=== PATIENT | male | born 1940 | race Caucasian/White ===

== ENCOUNTER 2016-07-23 12:42 | Inpatient (IN) | payer MEDICARE ==
[~2016-07-23] VITALS: Ht 182.9 cm; Wt 95.6 kg
[2016-07-23 14:25] VITALS: BP 175/76
[2016-07-23 14:50] VITALS: BP 152/62
[2016-07-23 15:27] LABS: MEAN CORPUSCULAR HEMOGLOBIN 29.2 pg (27.0-33.0); MEAN CORPUSCULAR HGB CONC 32.3 g/dl (32.0-36.5); MEAN CORPUSCULAR VOLUME 90.4 fl (80.0-96.0); RED CELL DISTRIBUTION WIDTH 13.4 % (11.5-14.5); WHITE BLOOD COUNT 7.5 K/mm3 (4.0-10.0)
[2016-07-23 15:36] LABS: INR 1.49
[2016-07-23 15:51] LABS: ALBUMIN 3.7 GM/DL (3.2-5.2); ALBUMIN/GLOBULIN RATIO 0.95 (1.00-1.93); BILIRUBIN,TOTAL 0.4 MG/DL (0.2-1.0); CALCIUM LEVEL 8.8 MG/DL (8.8-10.2); CREATININE FOR GFR 1.48 MG/DL (0.70-1.30); GLOMERULAR FILTRATION RATE 49.1 (>42); PHOSPHORUS LEVEL 2.3 MG/DL (2.5-4.9); TOTAL PROTEIN 7.6 GM/DL (6.4-8.2)
[2016-07-23 15:55] LABS: POTASSIUM SERUM 5.3 MEQ/L (3.5-5.1)
[2016-07-23 16:00] VITALS: BP 173/77
--- NOTE | 2016-07-23 16:02 | REP ---
Portable chest x-ray: Single view. History: Subdural hematoma. Comparison chest x-ray July 19, 2012. Findings: The patient is status post cardiac valve replacement. There are clips in the right chest and mediastinum. EKG monitoring electrodes are seen. Heart is enlarged as before. There are increased markings in the right upper lobe which may be an infiltrate. There is some old parenchymal scarring on the right as well at midlung field level. Impression: New area of parenchymal consolidation right upper lobe consistent with pneumonia. Old postsurgical changes on the right. Mild cardiomegaly. Signed by Cristian Archibald MD 07/23/2016 07:29 P
[2016-07-23] MEDS ORDERED: WARF-23 PO (16:03)
[2016-07-23] MEDS ORDERED: LOSA50TA20 PO (16:03)
[2016-07-23] MEDS ORDERED: ALBU83IN INH (16:03)
[2016-07-23] MEDS ORDERED: PHEN100C PO (16:03)
[2016-07-23] MEDS ORDERED: CITA20TA4 PO (16:03)
[2016-07-23] MEDS ORDERED: FLOM5CAP PO (16:03)
[2016-07-23] MEDS ORDERED: OMEP20CA3 PO (16:03)
[2016-07-23] MEDS ORDERED: WARF-18 PO (16:03)
[2016-07-23] MEDS ORDERED: PHYTONADIONE 10MG/ML INJECTION (J3430) SC ONE (17:45)
--- NOTE | 2016-07-23 18:38 | ECGEPIP ---
Stationary ECG Study [facility] Test Date: 2016-07-23 Pat Name: VENU CALDERÓN Department: Room: [place] [address] Gender: M Internet Marketing Director: KIRK : 1940 Requested By: ALMA DELIA Alexander Order Number: [id number] Reading MD: Ann Marie Jimenez Measurements Intervals [place] Rate: 61 P: 36 [place]: 211 QRS: -72 QRSD: 169 T: 4 QT: 451 QTc: 456 Interpretive Statements SINUS RHYTHM WITH FIRST DEGREE AV BLOCK RIGHT BUNDLE BRANCH BLOCK LEFT ANTERIOR FASCICULAR BLOCK TRIFASCICULAR BLOCK SINCE 07/19/12 RIGHT BUNDLE BRANCH BLOCK IS NEW Electronically Signed On 07-23-2016 18:38:41 EST by Ann Marie Jimenez
--- NOTE | 2016-07-23 19:28 | REP ---
MRI brain without contrast: History: Subdural hematoma. Injury in a fall. Comparison is made with CT study of the brain from 07/23/[address] [facility] technique: Axial and sagittal imaging planes are utilized. T1 and T2-weighted scans were obtained. Sequences include spin-echo, fast spin echo, FLAIR, and diffusion weighted sequences. MRI findings: No bony calvarial defect is seen. There is a left occipital scalp hematoma with a defect in the overlying skin suggesting a laceration. No skull fracture is evident on MRI scan. There is moderate diffuse cerebral atrophy. No midline shift or mass effect is seen. The dural line is slightly thickened in the left frontal region consistent with a small subdural hematoma seen on CT study here. There is also slight thickening of the falx. This is best appreciated on the 2-D gradient-echo heme study. A 1 cm contusion is seen on the heme study in the peripheral gyrus in the left parietal lobe. No definite right-sided subdural is seen. Small vessel atherosclerotic changes are noted. Impression: Small left frontal subdural hematoma 2-3 mm in thickness. A small collection of subdural blood is seen along the left side of the anterior falx. A 1 cm parenchymal contusion is noted in the left parietal lobe. No midline shift or mass effect seen. Left occipital scalp hematoma. Findings were reviewed with Dr. Early on the evening of the study. Signed by Cristian Archibald MD 07/23/2016 07:31 P
[2016-07-23 19:30] VITALS: BP 153/74
[2016-07-23] MEDS: IPRATROPIUM 0.5MG/ALBUTEROL 2.5MG INH SOL UD 3ML (DUONEB)(J7620) NEB SCH (20:00)
--- NOTE | 2016-07-23 20:50 | CCN ---
DATE: 07/23/2016 PULMONARY CRITICAL CARE NOTE I was called to the intensive care unit to evaluate this 75-year-old male after transfer from [facility]. He fell striking his head. He suffered a laceration in the occipital region. Imaging performed in [place] suggested a subdural hematoma, and he was transferred here for neurosurgical care. He was recently released from the hospital after treatment for pneumonia and continues to experience cough. He is awake and alert at this point. His temperature is 97, pulse rate 65, respirations 18, blood pressure 103/77. HEENT: He has an occipital laceration with ray in place. His pupils respond. Oral mucosa is pink. Neck is supple, no meningismus. Heart sounds are regular without appreciable murmur, quite distant. Breath sounds are coarse, particularly anteriorly on the right with some rhonchi in the right upper lobe. Chest is symmetric, increased in its AP diameter. Abdomen is soft with intact bowel sounds. Extremities show no edema. He does have a left hemiparesis. On review of his past medical history, it is quite extensive. He had a remote deep vein thrombosis (DVT), pulmonary embolism complicated by hydrothorax and pulmonary infarction. He had mitral valvular repair in 2003. He has obstructive sleep apnea syndrome, on pressure therapy. He has remotely diagnosed seizure disorder, benign prostatic hypertrophy and prostate cancer. He has a history of renal disease. Left ventricular hypertrophy on echocardiography studies. He was seen by Dr. Lennon for a solitary pulmonary nodule in the right upper lobe in June of 2015. 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 DIAGNOSTIC STUDIES: Tonight, his white cell count is 7.5, hemoglobin 13.6, hematocrit 42.2, platelet count is 100, chronically low. Sodium is 143, potassium 5.3, chloride 109, CO2 26, BUN 31, creatinine 1.4, glucose 96, phosphorus 2.3, alkaline phosphatase 134, LDH 244. His INR was 1.49. The primary problem requiring critical attention is pneumonia. There is an infiltrate on the x-ray; however, the patient does not have fever or elevated white count and did recently complete a course of antibiotics. Will obtain a sputum study for gram stain and culture. Will also obtain sputum for cytology. Chronic obstructive lung disease. Will be in nebulized bronchodilator therapy to facilitate secretion clearance. Obstructive sleep apnea syndrome. The patient's is on continuous positive airway pressure (CPAP) at 6 cm of water. Will continue with this. Subdural hematoma. Apparently on re-review of the imaging, this is quite minimal. Repeat CT will be arranged for morning. Solitary pulmonary nodule. The patient will require outpatient followup. Mitral valve replacement is remote. We will restart anticoagulation. I have discussed this with neurosurgery, and they agree that despite the a small subdural hematoma, anticoagulation would be prudent given his mitral valvular disease. Systemic arterial hypertension. Will restart his medications, targeting systolic blood pressure 150. Thrombocytopenia is chronic. Hyperkaliemia. We will administer hydration and recheck his electrolytes in the morning. The patient's condition is critical. Intensive care unit (ICU) care is appropriate. 57 minutes was spent in the provision of bedside critical care and coordination
[2016-07-23] MEDS: WARFARIN SOD 5 MG TAB PO SCH (20:52)
[2016-07-23] MEDS: D5W/0.45% SODIUM CHLORIDE 1,000 ML IV SCH (20:52)
[2016-07-23] MEDS ORDERED: TAMSULOSIN 0.4 MG CAP PO SCH (21:00)
[2016-07-23] MEDS ORDERED: PHENYTOIN ER 100 MG CAP PO SCH (21:00)
[2016-07-23 22:21] LABS: COLLAGEN ADP 189 SECONDS (56-103)
[2016-07-23 23:30] VITALS: BP 121/65
[2016-07-24] MEDS: IPRATROPIUM 0.5MG/ALBUTEROL 2.5MG INH SOL UD 3ML (DUONEB)(J7620) NEB SCH ×3 (01:29→14:38)
[2016-07-24 04:00] VITALS: BP 135/61
[2016-07-24 05:13] LABS: INR 1.51
[2016-07-24 05:15] LABS: ALBUMIN 3.2 GM/DL (3.2-5.2); CALCIUM LEVEL 8.1 MG/DL (8.8-10.2); CREATININE FOR GFR 1.44 MG/DL (0.70-1.30); GLOMERULAR FILTRATION RATE 50.6 (>42); PHOSPHORUS LEVEL 2.5 MG/DL (2.5-4.9); POTASSIUM SERUM 4.9 MEQ/L (3.5-5.1)
[2016-07-24] MEDS ORDERED: PROCHLORPERAZINE 5 MG TAB (S0183) PO ONE (05:15)
[2016-07-24] MEDS ORDERED: NORCO, ANEXSIA 5/325MG TABLET (HYDROcodone/ACETAMINOPHEN) PO PRN (05:15)
[2016-07-24 08:00] VITALS: BP 123/60
[2016-07-24] MEDS: D5W/0.45% SODIUM CHLORIDE 1,000 ML IV SCH (08:00)
[2016-07-24] MEDS ORDERED: LOSARTAN 50 MG TAB PO SCH (09:00)
--- NOTE | 2016-07-24 10:16 | REP ---
CT BRAIN WITHOUT CONTRAST: HISTORY: Subdural hematoma. Comparison is made with the [place] CT study from July 23, 2016. FINDINGS: Bone window settings show no evidence of skull fracture or bony destructive lesion. Visualized paranasal sinuses are clear. On soft tissue window settings, there is diffuse moderate cerebral atrophy. The previously noted very thin left frontoparietal subdural hematoma is again seen measuring 3 mm in greatest thickness. It is unchanged in anteroposterior extent. There is no visible mass effect. There is a small quantity of subdural hematoma adjacent to the left side of the anterior falx. This appears smaller than on yesterday's CT. The previously noted hemorrhagic contusion is no longer apparent. Skin ray are seen at the scalp laceration and left parietal scalp hematoma. IMPRESSION: Small left subdural hematoma improved. Diffuse atrophy. No parenchymal hemorrhage seen. Signed by Cristian Archibald MD 07/24/2016 10:55 A
[2016-07-24 11:00] VITALS: BP 134/70
[2016-07-24 11:50] VITALS: BP 117/58
[2016-07-24 12:00] VITALS: BP 117/58
[2016-07-24] MEDS ORDERED: PROCHLORPERAZINE 5 MG TAB (S0183) PO PRN (12:00)
[2016-07-24] MEDS ORDERED: PROC10TA PO (16:55)
[2016-07-24] MEDS: WARFARIN SOD 5 MG TAB PO SCH (17:04)
--- NOTE | 2016-07-25 08:29 | DSES ---
DATE OF ADMISSION: 07/23/2016 DATE OF DISCHARGE: 07/24/2016 FINAL DIAGNOSES: Acute head injury with small contusion and minimal subdural hematoma and diffuse central nervous system dysfunction, vestibular dysfunction. HOSPITAL COURSE: I was called by the hospitalist stating the patient fallen down today, developing loss of consciousness. There has been no history of progressive deterioration in his level or content of consciousness, though the CT scan showed a huge hematoma with more than 5 cm with a shift of midline structures. I requested that the patient be transferred immediately to the [facility]. On arrival, he was neurologically stable. The CT scan was reviewed from outside which showed minimal cortical contusion in the left parietal lobe with miniscule subdural linear density and also showed a few millimeters off inter-falcine net. The patient was observed and the CT scan from today shows still less conspicuous minute cortical contusion and 2.4 mm width subdural hematoma without mass effect. The patient, at the time of discharge is ambulating in his room, though with ataxia and left hemiparesis, worse in the lower extremities, which he drags along and tends to lean on the left. The patient's family advised that he cannot have any unsupervised activity. The patient, however, is adamant to go home. His family stated there is no acute change in his baseline as best as they can see. They are, however, concerned with the progressive worsening of the weakness, instability of the gait. They are advised again, to keep a close followup with his neurologist who has been taking care of him and continue seizure precautions. All discharge instructions were discussed. From a neurosurgical standpoint, he was discharged. He was advised to continue to followup with all his treating physicians, switchboard mechanic for COPD, sleep apnea, pulmonary nodule and pick up for his mitral valve replacement or repair, hypertension, thrombocytopenia and hyperkalemia. He is waiting for clearance to go home by the hospitalist. Once again, the patient and family have followup instructions.
== END 2016-07-24 17:15 | disposition home or self-care (01) | DRG 83 ==
LOC: M ICU 14:32
PROVIDERS: ADMIT Neurological Surgery; ATTEND Neurological Surgery
DX: S06.5X9A Traumatic subdural hemorrhage with loss of consciousness of unspecified duration, initial encounter (principal); I69.954 Hemiplegia and hemiparesis following unspecified cerebrovascular disease affecting left non-dominant side; W18.30XA Fall on same level, unspecified, initial encounter; Y92.009 Unspecified place in unspecified non-institutional (private) residence as the place of occurrence of the external cause; J44.9 Chronic obstructive pulmonary disease, unspecified; G47.33 Obstructive sleep apnea (adult) (pediatric); R91.8 Other nonspecific abnormal finding of lung field; I10 Essential (primary) hypertension; D69.6 Thrombocytopenia, unspecified; E87.5 Hyperkalemia; R27.0 Ataxia, unspecified; N40.0 Benign prostatic hyperplasia without lower urinary tract symptoms; Z86.718 Personal history of other venous thrombosis and embolism; Z86.711 Personal history of pulmonary embolism

== ENCOUNTER 2017-03-23 09:30 | Day surgery (SDC) | payer MEDICARE ==
[~2017-03-23] VITALS: Ht 182.9 cm; Wt 93.4 kg
[~2017-03-23 09:30] MED LIST: ACETAMINOPHEN 325 MG TAB PO PRN; ACETYLCHOLINE OPHTH SOLN 1% 2ML (MIOCHOL-E) As Ordered ONE; ALBU83IN INH; BALANCED SALT IRRIGATION SOLUTION 500ML BAG (FOR OR EYE MACHINE) As Ordered ONE; CEFUROXIME 1MG/0.1ML INTRACAMERAL INJ As Ordered ONE; CITA20TA4 PO; CYCLOPENTOLATE 2% OPHTH SOLN 2ML BTL OS ONE; DILA100C PO; FLOM5CAP PO; HEALON DUET (HEALON 10MG/ML 0.55ML & HEALON ENDOCOAT 30MG/ML 0.85ML) As Ordered ONE; LIDOCAINE 1% SDV 5 ML VIAL As Ordered ONE; LIDOCAINE 3.5 % 1ML OPHTH TOPICAL GEL OU ONE; LOSA50TA20 PO; OFLOXACIN 0.3 % (OCUFLOX) OPTH SOL 5ML OS ONE; OMEP20CA3 PO; PHEN100C PO; PHENYLEPHRINE 2.5% OPHTH SOL 2ML OS ONE; POVIDONE-IODINE 5% OPHTH PREP SOL 30ML As Ordered ONE; PROC10TA PO; PROPARACAINE 0.5% OPHTH SOL 15ML OS PRN; TROPICAMIDE 1% OPHTH SOLN 2ML OS ONE; WARF-18 PO; WARF-23 PO
[2017-03-23] MEDS ORDERED: LR 1,000 ML IV SCH ×2 (09:45→11:45)
[2017-03-23] MEDS ORDERED: fentaNYL 100 MCG/2 ML INJECTION (J3010) As Ordered ONE (10:34)
[2017-03-23] MEDS ORDERED: MIDAZOLAM INJ 2 MG/2 ML VIAL (J2250) As Ordered ONE (10:34)
[2017-03-23] MEDS ORDERED: CEFUROXIME 1MG/0.1ML INTRACAMERAL INJ As Ordered ONE (10:41)
[2017-03-23] MEDS ORDERED: ACETYLCHOLINE OPHTH SOLN 1% 2ML (MIOCHOL-E) As Ordered ONE (10:41)
[2017-03-23] MEDS ORDERED: HEALON DUET (HEALON 10MG/ML 0.55ML & HEALON ENDOCOAT 30MG/ML 0.85ML) As Ordered ONE (10:41)
[2017-03-23] MEDS ORDERED: LIDOCAINE 1% SDV 5 ML VIAL As Ordered ONE (10:41)
[2017-03-23] MEDS ORDERED: KETOROLAC 0.5% OPHTH SOLN OS ONE (11:45)
[2017-03-23] MEDS ORDERED: TRIMETHOBENZAMIDE 300 MG CAP PO PRN (11:45)
[2017-03-23] MEDS ORDERED: AcetaZOLAMIDE 500 MG ER CAP PO ONE (11:45)
[2017-03-23 12:10] VITALS: BP 189/84
--- NOTE | 2017-03-23 14:14 | RO ---
DATE OF PROCEDURE: 03/23/2017 PREPROCEDURE DIAGNOSIS: Age related nuclear cataract and astigmatism. POSTPROCEDURE DIAGNOSIS: Age related nuclear cataract and astigmatism. PROCEDURE: Femtosecond cataract extraction with posterior chamber intraocular lens implantation. The lens used was AU00T0, 19.0 diopter. SURGEON: Tabby Alexandre MD TYPING SECTION CHIEF: ANESTHESIA: Topical sedation. DESCRIPTION OF PROCEDURE: The patient was brought to the operating room and put under the femtosecond laser. A lid speculum was placed between the lids, and the laser was lowered on. Docking was achieved with good suction. The laser procedure was performed with no difficulty. The laser was then removed from the eye, and the lid speculum was removed. The laser was moved over to the operating microscope and prepped and draped in the usual fashion. A lid speculum was placed between the lids. The eye was fixated. The side port incision was opened up with a spatula. 1% non-preservative lidocaine was instilled; then, viscoelastic was instilled. The main incision was then opened with the spatula. The capsulorrhexis was removed from the eye with the Utrata forceps. The lens was then hydrodissected, and a phacoemulsification unit was used to make a groove in the nucleus and one meridian. The nucleus was cracked into four quadrants, and then each quadrant was removed with the phacoemulsification unit. Any remaining cortex was removed with the irrigation and aspiration (I and A) unit. The capsular bag was refilled with viscoelastic. A posterior chamber intraocular lens was placed in the capsular bag. The remaining viscoelastic was removed. The wound was hydrated. Miochol and cefuroxime were instilled. The wound was watertight. The patient tolerated the procedure well and went to the recovery room in stable condition.
[2017-04-18] MEDS ORDERED: DILA100C PO (07:58)
[2017-04-18] MEDS ORDERED: FINA5TAB2 PO (07:58)
== END 2017-03-23 12:20 | disposition home or self-care (01) ==
LOC: M SDC 09:30
PROVIDERS: ATTEND Ophthalmology
DX: H25.12 Age-related nuclear cataract, left eye (principal); H52.202 Unspecified astigmatism, left eye; I10 Essential (primary) hypertension; K21.9 Gastro-esophageal reflux disease without esophagitis; D64.9 Anemia, unspecified; F41.9 Anxiety disorder, unspecified; J44.9 Chronic obstructive pulmonary disease, unspecified; Z86.73 Personal history of transient ischemic attack (TIA), and cerebral infarction without residual deficits; G47.30 Sleep apnea, unspecified; Z79.899 Other long term (current) drug therapy; Z87.891 Personal history of nicotine dependence; N40.0 Benign prostatic hyperplasia without lower urinary tract symptoms
CPT/HCPCS: 66984; J2250; J3010; V2632

== ENCOUNTER → 2017-06-20 | Outpatient (REF) | payer MEDICARE ==
[2017-06-20 08:18] LABS: PHENYTOIN (DILANTIN) 21.9 UG/ML (10.0-20.0)
== END ==
LOC: SKLAB8 08:00
DX: Z51.81 Encounter for therapeutic drug level monitoring (principal); Z79.899 Other long term (current) drug therapy
CPT/HCPCS: 80185

== ENCOUNTER → 2017-06-22 | Outpatient (REF) | payer MEDICARE ==
[2017-06-22 14:52] LABS: HEMATOCRIT 38.3 % (42.0-52.0); HEMOGLOBIN 12.6 g/dl (14.0-18.0); MEAN CORPUSCULAR HEMOGLOBIN 29.9 pg (27.0-33.0); MEAN CORPUSCULAR HGB CONC 32.9 g/dl (32.0-36.5); MEAN CORPUSCULAR VOLUME 90.8 fl (80.0-96.0); PLATELET COUNT, AUTOMATED 127 10^3/uL (150-450); RED BLOOD COUNT 4.22 10^6/uL (4.30-6.10); RED CELL DISTRIBUTION WIDTH 13.2 % (11.5-14.5); WHITE BLOOD COUNT 9.1 10^3/uL (4.0-10.0)
[2017-06-22 15:11] LABS: ANION GAP 5 MEQ/L (8-16); BLOOD UREA NITROGEN 38 MG/DL (7-18); CARBON DIOXIDE LEVEL 28 MEQ/L (21-32); CHLORIDE LEVEL 107 MEQ/L (98-107); CREATININE FOR GFR 1.49 MG/DL (0.70-1.30); GLOMERULAR FILTRATION RATE 48.6 (>42); GLUCOSE, FASTING 111 MG/DL (83-110); POTASSIUM SERUM 4.4 MEQ/L (3.5-5.1); SODIUM LEVEL 140 MEQ/L (136-145)
== END ==
LOC: SKLAB8 13:00
DX: Z00.00 Encounter for general adult medical examination without abnormal findings (principal)
CPT/HCPCS: 80048

== ENCOUNTER → 2017-06-25 | Outpatient (REF) | payer MEDICARE, MEDICAID ==
[2017-06-25 12:52] LABS: BASO % 0.5 % (0.0-1.0); EOS # 0.3 10^3/uL (0.0-0.50); EOS % 3.4 % (0.0-3.0); HEMATOCRIT 37.4 % (42.0-52.0); HEMOGLOBIN 12.3 g/dl (14.0-18.0); IMMATURE GRANULOCYTE % 0.2 % (0-0); LYMPH # 2.8 10^3/uL (1.5-4.5); LYMPH % 34.5 % (24.0-44.0); MEAN CORPUSCULAR HEMOGLOBIN 29.7 pg (27.0-33.0); MEAN CORPUSCULAR HGB CONC 32.9 g/dl (32.0-36.5); MEAN CORPUSCULAR VOLUME 90.3 fl (80.0-96.0); MONO # 0.8 10^3/uL (0.0-0.8); MONO % 10.2 % (0.0-5.0); NEUTROPHILS # 4.1 10^3/uL (1.8-7.7); NEUTROPHILS % 51.2 % (36.0-66.0); PLATELET COUNT, AUTOMATED 147 10^3/uL (150-450); RED BLOOD COUNT 4.14 10^6/uL (4.30-6.10); RED CELL DISTRIBUTION WIDTH 13.2 % (11.5-14.5)
[2017-06-25 13:08] LABS: ANION GAP 5 MEQ/L (8-16); BLOOD UREA NITROGEN 34 MG/DL (7-18); CALCIUM LEVEL 7.8 MG/DL (8.8-10.2); CARBON DIOXIDE LEVEL 27 MEQ/L (21-32); CHLORIDE LEVEL 109 MEQ/L (98-107); CREATININE FOR GFR 1.43 MG/DL (0.70-1.30); GLOMERULAR FILTRATION RATE 50.9 (>42); GLUCOSE, FASTING 109 MG/DL (83-110); POTASSIUM SERUM 4.4 MEQ/L (3.5-5.1); SODIUM LEVEL 141 MEQ/L (136-145)
== END ==
LOC: SKLAB8 12:32
DX: R31.9 Hematuria, unspecified (principal)
CPT/HCPCS: 80048

== ENCOUNTER 2017-07-04 18:18 | Inpatient (IN) | payer MEDICARE, MEDICAID ==
[2017-07-04] MEDS: ASPIRIN 81 MG CHEW TABLET PO (19:39)
[2017-07-04 19:49] LABS: BASO % 0.2 % (0.0-1.0); EOS # 0.2 10^3/uL (0.0-0.50); EOS % 1.7 % (0.0-3.0); HEMATOCRIT 36.5 % (42.0-52.0); IMMATURE GRANULOCYTE % 0.3 % (0-0); LYMPH # 2.6 10^3/uL (1.5-4.5); LYMPH % 21.2 % (24.0-44.0); MEAN CORPUSCULAR HEMOGLOBIN 29.7 pg (27.0-33.0); MEAN CORPUSCULAR HGB CONC 32.9 g/dl (32.0-36.5); MEAN CORPUSCULAR VOLUME 90.3 fl (80.0-96.0); MONO # 1.2 10^3/uL (0.0-0.8); MONO % 9.9 % (0.0-5.0); NEUTROPHILS # 8.2 10^3/uL (1.8-7.7); NEUTROPHILS % 66.7 % (36.0-66.0); PLATELET COUNT, AUTOMATED 152 10^3/uL (150-450); RED BLOOD COUNT 4.04 10^6/uL (4.30-6.10); RED CELL DISTRIBUTION WIDTH 12.9 % (11.5-14.5); WHITE BLOOD COUNT 12.4 10^3/uL (4.0-10.0)
[2017-07-04 20:08] LABS: PARTIAL THROMBOPLASTIN TIME 40.4 SECONDS (26.8-37.9)
[2017-07-04 20:11] LABS: ALBUMIN 3.4 GM/DL (3.2-5.2); ALBUMIN/GLOBULIN RATIO 0.87 (1.00-1.93); ALKALINE PHOSPHATASE 113 U/L (45-117); ALT/SGPT 23 U/L (12-78); ANION GAP 7 MEQ/L (8-16); AST/SGOT 24 U/L (7-37); BILIRUBIN,DIRECT < 0.1 MG/DL (0.0-0.2); BILIRUBIN,TOTAL 0.3 MG/DL (0.2-1.0); BLOOD UREA NITROGEN 37 MG/DL (7-18); CALCIUM LEVEL 8.3 MG/DL (8.8-10.2); CARBON DIOXIDE LEVEL 26 MEQ/L (21-32); CHLORIDE LEVEL 109 MEQ/L (98-107); CPK CREATINE PHOSPHOKINASE 52 U/L (39-308); GLOMERULAR FILTRATION RATE 41.7 (>42); GLUCOSE, FASTING 97 MG/DL (83-110); LIPASE 117 U/L (73-393); MB/CK RELATIVE INDEX 1.92 (< OR =4); NT-PRO BNP 678 PG/ML (<450); PHENYTOIN (DILANTIN) 19.3 UG/ML (10.0-20.0); POTASSIUM SERUM 4.8 MEQ/L (3.5-5.1); SODIUM LEVEL 142 MEQ/L (136-145); TOTAL PROTEIN 7.3 GM/DL (6.4-8.2); TROPONIN I < 0.02 NG/ML (< 0.10)
[2017-07-04 20:16] LABS: PROTHROMBIN TIME 14.4 SECONDS (12.4-14.5)
[2017-07-04] MEDS: MORPHINE 4 MG/ML 1ML VIAL (J2270) IV (21:34)
[2017-07-04] MEDS: PHENYTOIN ER 100 MG CAP PO (23:33)
[2017-07-04] MEDS: levETIRAcetam 250MG TABLET (KEPPRA) PO (23:33)
[2017-07-04] MEDS: PIPERACILLIN/TAZOBACTAM SOD 3.375 GM in APPROPRIATE DILUENT 1 EA IV (23:43)
[2017-07-05] MEDS: VANCOMYCIN HCL 1,000 MG, VIAL MATE ADAPTER 1 EACH in D5W 250 ML IV (00:49)
[2017-07-05] MEDS ORDERED: ACETAMINOPHEN 325 MG TAB PO (01:00)
[2017-07-05] MEDS ORDERED: BISACODYL 10 MG SUPP PR (01:00)
[2017-07-05] MEDS ORDERED: ACETAMINOPHEN TAB 650MG DOSE (2X325MG) PO (01:00)
[2017-07-05] MEDS: traZODone 50 MG TAB PO (02:02)
[2017-07-05] MEDS: QUEtiapine FUMARATE 25 MG TAB PO (02:03)
[2017-07-05] MEDS: IPRATROPIUM 0.5MG/ALBUTEROL 2.5MG INH SOL UD 3ML (DUONEB)(J7620) INH (08:13)
[2017-07-05] MEDS: MOM 30ML SUSPENSION UDC PO (08:23)
[2017-07-05] MEDS: TAMSULOSIN 0.4 MG CAP PO (08:23)
[2017-07-05] MEDS: FINASTERIDE 5 MG TAB PO (08:23)
[2017-07-05] MEDS: ASPIRIN 81 MG ENTERIC TAB PO (08:23)
[2017-07-05] MEDS: DOCUSATE SODIUM 100 MG CAP PO (08:23)
[2017-07-05] MEDS: CitaloPRAM (CeleXA) 20 MG TAB PO (08:23)
[2017-07-05] MEDS: levETIRAcetam 250MG TABLET (KEPPRA) PO (08:23)
[2017-07-05] MEDS: MULTIVITAMINS/MINERALS THERAP 1 TAB PO (08:23)
[2017-07-05 08:24] LABS: BASO # 0.1 10^3/uL (0.0-0.2); BASO % 0.4 % (0.0-1.0); EOS # 0.4 10^3/uL (0.0-0.50); EOS % 2.9 % (0.0-3.0); HEMATOCRIT 35.8 % (42.0-52.0); HEMOGLOBIN 11.8 g/dl (14.0-18.0); IMMATURE GRANULOCYTE % 0.2 % (0-0); MEAN CORPUSCULAR HEMOGLOBIN 29.6 pg (27.0-33.0); MEAN CORPUSCULAR VOLUME 89.7 fl (80.0-96.0); MONO # 1.3 10^3/uL (0.0-0.8); MONO % 10.2 % (0.0-5.0); NEUTROPHILS # 7.8 10^3/uL (1.8-7.7); NEUTROPHILS % 62.3 % (36.0-66.0); PLATELET COUNT, AUTOMATED 150 10^3/uL (150-450); RED BLOOD COUNT 3.99 10^6/uL (4.30-6.10); RED CELL DISTRIBUTION WIDTH 12.8 % (11.5-14.5); WHITE BLOOD COUNT 12.5 10^3/uL (4.0-10.0)
[2017-07-05 08:45] LABS: ANION GAP 7 MEQ/L (8-16); BLOOD UREA NITROGEN 36 MG/DL (7-18); CALCIUM LEVEL 8.3 MG/DL (8.8-10.2); CARBON DIOXIDE LEVEL 21 MEQ/L (21-32); CHLORIDE LEVEL 112 MEQ/L (98-107); CREATININE FOR GFR 1.67 MG/DL (0.70-1.30); GLOMERULAR FILTRATION RATE 42.6 (>42); GLUCOSE, FASTING 89 MG/DL (83-110); MAGNESIUM LEVEL 2.3 MG/DL (1.8-2.4); POTASSIUM SERUM 4.3 MEQ/L (3.5-5.1); SODIUM LEVEL 140 MEQ/L (136-145)
[2017-07-05] MEDS ORDERED: PANTOPRAZOLE 40MG TAB (PROTONIX) PO (09:00)
[2017-07-05] MEDS: ENOXAPARIN 40 MG/0.4 ML SYRINGE (J1650) SC (09:00)
[2017-07-05] MEDS ORDERED: VANCOMYCIN HCL 1,000 MG, VIAL MATE ADAPTER 1 EACH in D5W 250 ML IV (10:45)
[2017-07-05] MEDS: PIPERACILLIN/TAZOBACTAM SOD 3.375 GM in APPROPRIATE DILUENT 1 EA IV (13:26)
[2017-07-05] MEDS ORDERED: OMEPRAZOLE 20 MG CAP PO (18:00)
[2017-07-05] MEDS ORDERED: PHENYTOIN ER 100 MG CAP PO (21:00)
== END 2017-07-05 15:15 | DRG 194 ==
LOC: M ED INP 07-05 00:57 → M ED 18:18
DX: J18.9 Pneumonia, unspecified organism (principal); N17.9 Acute kidney failure, unspecified; Z88.5 Allergy status to narcotic agent; Z79.899 Other long term (current) drug therapy; Z87.891 Personal history of nicotine dependence; F03.90 Unspecified dementia, unspecified severity, without behavioral disturbance, psychotic disturbance, mood disturbance, and anxiety; Z86.73 Personal history of transient ischemic attack (TIA), and cerebral infarction without residual deficits; N40.0 Benign prostatic hyperplasia without lower urinary tract symptoms; F32.9 Major depressive disorder, single episode, unspecified; Z79.82 Long term (current) use of aspirin

== ENCOUNTER → 2017-07-06 | Outpatient (REF) | payer MEDICARE, MEDICAID ==
[2017-07-06 08:10] LABS: HEMATOCRIT 35.9 % (42.0-52.0); HEMOGLOBIN 11.8 g/dl (14.0-18.0); MEAN CORPUSCULAR HEMOGLOBIN 29.6 pg (27.0-33.0); MEAN CORPUSCULAR HGB CONC 32.9 g/dl (32.0-36.5); PLATELET COUNT, AUTOMATED 176 10^3/uL (150-450); RED BLOOD COUNT 3.99 10^6/uL (4.30-6.10); WHITE BLOOD COUNT 10.5 10^3/uL (4.0-10.0)
[2017-07-06 08:36] LABS: ANION GAP 4 MEQ/L (8-16); BLOOD UREA NITROGEN 38 MG/DL (7-18); CALCIUM LEVEL 8.3 MG/DL (8.8-10.2); CARBON DIOXIDE LEVEL 27 MEQ/L (21-32); CHLORIDE LEVEL 110 MEQ/L (98-107); CREATININE FOR GFR 1.89 MG/DL (0.70-1.30); GLOMERULAR FILTRATION RATE 36.9 (>42); GLUCOSE, FASTING 108 MG/DL (83-110); POTASSIUM SERUM 4.4 MEQ/L (3.5-5.1); SODIUM LEVEL 141 MEQ/L (136-145)
== END ==
LOC: SKLAB8 07:00
DX: E03.9 Hypothyroidism, unspecified (principal)
CPT/HCPCS: 36415

== ENCOUNTER → 2017-07-07 | Outpatient (REF) | payer MEDICARE, MEDICAID ==
[2017-07-07 09:59] LABS: HEMATOCRIT 35.5 % (42.0-52.0); HEMOGLOBIN 11.6 g/dl (14.0-18.0); MEAN CORPUSCULAR HEMOGLOBIN 29.4 pg (27.0-33.0); MEAN CORPUSCULAR HGB CONC 32.7 g/dl (32.0-36.5); MEAN CORPUSCULAR VOLUME 89.9 fl (80.0-96.0); PLATELET COUNT, AUTOMATED 190 10^3/uL (150-450); RED BLOOD COUNT 3.95 10^6/uL (4.30-6.10); RED CELL DISTRIBUTION WIDTH 12.8 % (11.5-14.5); WHITE BLOOD COUNT 8.5 10^3/uL (4.0-10.0)
[2017-07-07 10:25] LABS: ALBUMIN 3.1 GM/DL (3.2-5.2); ALBUMIN/GLOBULIN RATIO 0.86 (1.00-1.93); ALKALINE PHOSPHATASE 95 U/L (45-117); ALT/SGPT 28 U/L (12-78); ANION GAP 9 MEQ/L (8-16); AST/SGOT 22 U/L (7-37); BILIRUBIN,TOTAL 0.2 MG/DL (0.2-1.0); BLOOD UREA NITROGEN 39 MG/DL (7-18); CALCIUM LEVEL 8.1 MG/DL (8.8-10.2); CARBON DIOXIDE LEVEL 23 MEQ/L (21-32); CHLORIDE LEVEL 110 MEQ/L (98-107); CREATININE FOR GFR 1.78 MG/DL (0.70-1.30); GLOMERULAR FILTRATION RATE 39.5 (>42); GLUCOSE, FASTING 155 MG/DL (83-110); PHENYTOIN (DILANTIN) 13.4 UG/ML (10.0-20.0); PSA SCREENING 1.48 NG/ML (< 4.0); SODIUM LEVEL 142 MEQ/L (136-145); TOTAL PROTEIN 6.7 GM/DL (6.4-8.2)
== END ==
LOC: SKLAB8 07:00
DX: I10 Essential (primary) hypertension (principal); Z79.899 Other long term (current) drug therapy
CPT/HCPCS: 80185

== ENCOUNTER → 2017-09-08 | Outpatient (REF) | payer MEDICARE, MEDICAID ==
[2017-09-11 00:06] LABS: LEVETIRACETAM (KEPPRA) 12.5 ug/mL (10.0-40.0)
== END ==
LOC: SKLAB5 07:27
DX: G40.909 Epilepsy, unspecified, not intractable, without status epilepticus (principal)
CPT/HCPCS: 36415

== ENCOUNTER 2017-09-20 15:09 | Inpatient (IN) | payer MEDICARE, MEDICAID ==
[2017-09-20 16:32] LABS: BASO % 0.2 % (0.0-1.0); EOS % 0.2 % (0.0-3.0); HEMATOCRIT 41.2 % (42.0-52.0); HEMOGLOBIN 13.7 g/dl (13.5-17.5); IMMATURE GRANULOCYTE % 0.2 % (0-3.0); LYMPH # 1.5 10^3/uL (1.5-4.5); LYMPH % 11.5 % (24.0-44.0); MEAN CORPUSCULAR HGB CONC 33.3 g/dl (32.0-36.5); MEAN CORPUSCULAR VOLUME 87.1 fl (80.0-96.0); MONO # 0.9 10^3/uL (0.0-0.8); MONO % 6.7 % (0.0-5.0); NEUTROPHILS # 10.3 10^3/uL (1.8-7.7); NEUTROPHILS % 81.2 % (36.0-66.0); PLATELET COUNT, AUTOMATED 106 10^3/uL (150-450); RED BLOOD COUNT 4.73 10^6/uL (4.30-6.10); RED CELL DISTRIBUTION WIDTH 13.5 % (11.5-14.5); WHITE BLOOD COUNT 12.7 10^3/uL (4.0-10.0)
[2017-09-20 16:40] LABS: ANION GAP 7 MEQ/L (8-16); BLOOD UREA NITROGEN 45 MG/DL (7-18); CALCIUM LEVEL 8.3 MG/DL (8.8-10.2); CARBON DIOXIDE LEVEL 25 MEQ/L (21-32); CHLORIDE LEVEL 108 MEQ/L (98-107); CREATININE FOR GFR 2.12 MG/DL (0.70-1.30); GLOMERULAR FILTRATION RATE 32.2 (>42); GLUCOSE, FASTING 118 MG/DL (70-100); PHENYTOIN (DILANTIN) 0.4 UG/ML (10.0-20.0); POTASSIUM SERUM 4.5 MEQ/L (3.5-5.1); SODIUM LEVEL 140 MEQ/L (136-145)
[2017-09-20 16:44] LABS: ABG O2 SATURATION 95.5 % (95.0-99.0); ABG PARTIAL PRESSURE CO2 30.2 mmHg (35.0-45.0); ABG PARTIAL PRESSURE O2 76.1 mmHg (75.0-100.0); ABG TOTAL CO2 20.9 MEQ/L (23.0-31.0); ABG pH (ARTERIAL) 7.439 UNITS (7.350-7.450)
[2017-09-20] MEDS: IPRATROPIUM 0.5MG/ALBUTEROL 2.5MG INH SOL UD 3ML (DUONEB)(J7620) NEB ×3 (16:46→17:08)
[2017-09-20] MEDS: ACETAMINOPHEN TAB 650MG DOSE (2X325MG) PO (17:04)
[2017-09-20 17:11] LABS: LACTIC ACID SEPSIS PROTOCOL 2.2 MMOL/L (0.4-2.0)
[2017-09-20] MEDS: cefTRIAXone SOD 2 GM in D5W MINI-BAG PLUS 50 ML IV (17:30)
[2017-09-20] MEDS: AZITHROMYCIN INJ 500 MG, VIAL MATE ADAPTER 1 EACH in D5W 250 ML IV (17:43)
[2017-09-20 18:02] LABS: INFLUENZA A AMPLIFICATION NEGATIVE (NEGATIVE); INFLUENZA B AMPLIFICATION NEGATIVE (NEGATIVE)
[2017-09-20] MEDS: NS 1,000 ML IV (20:18)
[2017-09-20] MEDS ORDERED: BISACODYL 10 MG SUPP PR (20:30)
[2017-09-20] MEDS ORDERED: ONDANSETRON 4 MG TAB (S0181) PO (20:30)
[2017-09-20] MEDS ORDERED: IPRATROPIUM 0.5MG/ALBUTEROL 2.5MG INH SOL UD 3ML (DUONEB)(J7620) NEB (20:30)
[2017-09-20] MEDS ORDERED: MOM 30ML SUSPENSION UDC PO (20:30)
[2017-09-20] MEDS ORDERED: FLEET ENEMA PR (20:30)
[2017-09-20] MEDS ORDERED: NITROGLYCERIN 0.4 MG SUBL TABLET SL (20:30)
[2017-09-20] MEDS ORDERED: VANCOMYCIN HCL 1,000 MG, VIAL MATE ADAPTER 1 EACH in D5W 250 ML IV (20:30)
[2017-09-20] MEDS: guaiFENesin ER 600 MG TAB PO (22:56)
[2017-09-20] MEDS: HEPARIN SOD (PORCINE) 5000 UNITS/ML VIAL SC (22:56)
[2017-09-20] MEDS: levETIRAcetam 250MG TABLET (KEPPRA) PO (22:57)
[2017-09-20] MEDS: TAMSULOSIN 0.4 MG CAP PO (22:57)
[2017-09-20] MEDS: traZODone 50 MG TAB PO (22:57)
[2017-09-20] MEDS: OMEPRAZOLE 20 MG CAP PO (22:57)
[2017-09-20] MEDS: DOCUSATE SODIUM 100 MG CAP PO (22:57)
[2017-09-20] MEDS: PIPERACILLIN/TAZOBACTAM SOD 2.25 GM in APPROPRIATE DILUENT 1 EA IV (23:37)
[2017-09-21] MEDS: IPRATROPIUM 0.5MG/ALBUTEROL 2.5MG INH SOL UD 3ML (DUONEB)(J7620) NEB ×4 (00:49→20:00)
[2017-09-21] MEDS: VANCOMYCIN HCL 1,000 MG, VIAL MATE ADAPTER 1 EACH in D5W 250 ML IV ×2 (01:04→09:02)
[2017-09-21 01:16] LABS: LACTIC ACID SEPSIS PROTOCOL 1.7 MMOL/L (0.4-2.0)
[2017-09-21] MEDS: HEPARIN SOD (PORCINE) 5000 UNITS/ML VIAL SC ×3 (05:38→21:32)
[2017-09-21] MEDS: PIPERACILLIN/TAZOBACTAM SOD 2.25 GM in APPROPRIATE DILUENT 1 EA IV ×4 (05:39→23:58)
[2017-09-21 06:58] LABS: BASO % 0.2 % (0.0-1.0); EOS # 0.1 10^3/uL (0.0-0.50); EOS % 0.6 % (0.0-3.0); HEMATOCRIT 38.2 % (42.0-52.0); HEMOGLOBIN 12.8 g/dl (13.5-17.5); IMMATURE GRANULOCYTE % 0.4 % (0-3.0); LYMPH # 2.8 10^3/uL (1.5-4.5); LYMPH % 20.9 % (24.0-44.0); MEAN CORPUSCULAR HEMOGLOBIN 29.1 pg (27.0-33.0); MEAN CORPUSCULAR HGB CONC 33.5 g/dl (32.0-36.5); MEAN CORPUSCULAR VOLUME 86.8 fl (80.0-96.0); MONO % 7.2 % (0.0-5.0); NEUTROPHILS # 9.4 10^3/uL (1.8-7.7); NEUTROPHILS % 70.7 % (36.0-66.0); RED CELL DISTRIBUTION WIDTH 13.7 % (11.5-14.5); WHITE BLOOD COUNT 13.4 10^3/uL (4.0-10.0)
[2017-09-21 07:13] LABS: ANION GAP 5 MEQ/L (8-16); BLOOD UREA NITROGEN 41 MG/DL (7-18); CALCIUM LEVEL 7.9 MG/DL (8.8-10.2); CARBON DIOXIDE LEVEL 24 MEQ/L (21-32); CHLORIDE LEVEL 111 MEQ/L (98-107); CREATININE FOR GFR 1.91 MG/DL (0.70-1.30); GLOMERULAR FILTRATION RATE 36.4 (>42); GLUCOSE, FASTING 99 MG/DL (70-100); POTASSIUM SERUM 4.4 MEQ/L (3.5-5.1); SODIUM LEVEL 140 MEQ/L (136-145)
[2017-09-21 07:34] LABS: ERYTHROCYTE SEDIMENTATION RATE 24 mm/hr (0-20)
[2017-09-21 07:45] LABS: PLATELET COUNT, AUTOMATED 87 10^3/uL (150-450)
[2017-09-21 07:47] LABS: IMMATURE PLATELET FRACTION % 4.6 % (0.0-10.9)
[2017-09-21] MEDS: FINASTERIDE 5 MG TAB PO (09:02)
[2017-09-21] MEDS: MULTIVITAMINS/MINERALS THERAP 1 TAB PO (09:02)
[2017-09-21] MEDS: CitaloPRAM (CeleXA) 20 MG TAB PO (09:02)
[2017-09-21] MEDS: DOCUSATE SODIUM 100 MG CAP PO ×2 (09:02→21:32)
[2017-09-21] MEDS: guaiFENesin ER 600 MG TAB PO ×2 (09:02→21:32)
[2017-09-21] MEDS: ASPIRIN 81 MG ENTERIC TAB PO (09:02)
[2017-09-21] MEDS: TAMSULOSIN 0.4 MG CAP PO ×2 (09:02→21:32)
[2017-09-21] MEDS: levETIRAcetam 250MG TABLET (KEPPRA) PO ×2 (09:02→21:32)
[2017-09-21 09:15] LABS: PROLACTIN 8.6 NG/ML (2.1-17.7)
[2017-09-21] MEDS: DIVALPROEX 500MG *ER* TAB PO (11:12)
[2017-09-21] MEDS: NS 1,000 ML IV ×3 (11:32→21:33)
[2017-09-21] MEDS: MECLIZINE 25 MG TABLET PO (17:45)
[2017-09-21] MEDS: NS 500 ML IV (17:45)
[2017-09-21] MEDS: OMEPRAZOLE 20 MG CAP PO (21:32)
[2017-09-21] MEDS: traZODone 50 MG TAB PO (21:32)
[2017-09-22] MEDS: IPRATROPIUM 0.5MG/ALBUTEROL 2.5MG INH SOL UD 3ML (DUONEB)(J7620) NEB ×4 (02:00→21:03)
[2017-09-22] MEDS: VANCOMYCIN HCL 1,000 MG, VIAL MATE ADAPTER 1 EACH in D5W 250 ML IV ×2 (03:09→19:58)
[2017-09-22] MEDS: PIPERACILLIN/TAZOBACTAM SOD 2.25 GM in APPROPRIATE DILUENT 1 EA IV ×4 (05:41→23:31)
[2017-09-22] MEDS: HEPARIN SOD (PORCINE) 5000 UNITS/ML VIAL SC ×3 (05:42→21:54)
[2017-09-22] MEDS: FINASTERIDE 5 MG TAB PO (07:47)
[2017-09-22] MEDS: guaiFENesin ER 600 MG TAB PO ×2 (07:47→19:59)
[2017-09-22] MEDS: DOCUSATE SODIUM 100 MG CAP PO ×2 (07:47→19:59)
[2017-09-22] MEDS: MULTIVITAMINS/MINERALS THERAP 1 TAB PO (07:47)
[2017-09-22] MEDS: ASPIRIN 81 MG ENTERIC TAB PO (07:47)
[2017-09-22] MEDS: TAMSULOSIN 0.4 MG CAP PO ×2 (07:47→19:59)
[2017-09-22] MEDS: levETIRAcetam 250MG TABLET (KEPPRA) PO ×2 (07:48→19:59)
[2017-09-22] MEDS: DIVALPROEX 500MG *ER* TAB PO (07:48)
[2017-09-22] MEDS: CitaloPRAM (CeleXA) 20 MG TAB PO (07:48)
[2017-09-22 07:51] LABS: BASO % 0.2 % (0.0-1.0); EOS # 0.3 10^3/uL (0.0-0.50); EOS % 3.2 % (0.0-3.0); HEMATOCRIT 37.3 % (42.0-52.0); HEMOGLOBIN 12.5 g/dl (13.5-17.5); IMMATURE GRANULOCYTE % 0.3 % (0-3.0); LYMPH # 2.4 10^3/uL (1.5-4.5); LYMPH % 24.4 % (24.0-44.0); MEAN CORPUSCULAR HGB CONC 33.5 g/dl (32.0-36.5); MEAN CORPUSCULAR VOLUME 86.5 fl (80.0-96.0); MONO % 10.3 % (0.0-5.0); NEUTROPHILS # 6.1 10^3/uL (1.8-7.7); NEUTROPHILS % 61.6 % (36.0-66.0); RED BLOOD COUNT 4.31 10^6/uL (4.30-6.10); RED CELL DISTRIBUTION WIDTH 13.6 % (11.5-14.5)
[2017-09-22] MEDS: ACETAMINOPHEN TAB 650MG DOSE (2X325MG) PO (07:51)
[2017-09-22 07:54] LABS: PLATELET COUNT, AUTOMATED 90 10^3/uL (150-450); POS COUNT POS FLAG
[2017-09-22 07:55] LABS: IMMATURE PLATELET FRACTION % 4.7 % (0.0-10.9); PLATELET F 94
[2017-09-22 08:22] LABS: ANION GAP 7 MEQ/L (8-16); BLOOD UREA NITROGEN 33 MG/DL (7-18); CARBON DIOXIDE LEVEL 22 MEQ/L (21-32); CHLORIDE LEVEL 113 MEQ/L (98-107); CREATININE FOR GFR 1.51 MG/DL (0.70-1.30); GLOMERULAR FILTRATION RATE 47.7 (>42); GLUCOSE, FASTING 91 MG/DL (70-100); POTASSIUM SERUM 4.7 MEQ/L (3.5-5.1); SODIUM LEVEL 142 MEQ/L (136-145)
[2017-09-22] MEDS ORDERED: E-Z-PAQUE 96% w/w SUSP 176GM BTL As Ordered (14:35)
[2017-09-22] MEDS ORDERED: VARIBAR PUDDING 40% w/v 230ML TUBE As Ordered (14:35)
[2017-09-22] MEDS ORDERED: VARIBAR NECTAR 40% w/v 240ML SUSP BTL As Ordered (14:35)
[2017-09-22] MEDS: OMEPRAZOLE 20 MG CAP PO (19:59)
[2017-09-22] MEDS: traZODone 50 MG TAB PO (19:59)
[2017-09-23] MEDS: IPRATROPIUM 0.5MG/ALBUTEROL 2.5MG INH SOL UD 3ML (DUONEB)(J7620) NEB ×2 (01:36→07:13)
[2017-09-23] MEDS: HEPARIN SOD (PORCINE) 5000 UNITS/ML VIAL SC (05:35)
[2017-09-23] MEDS: PIPERACILLIN/TAZOBACTAM SOD 2.25 GM in APPROPRIATE DILUENT 1 EA IV (05:35)
[2017-09-23 06:50] LABS: BASO % 0.4 % (0.0-1.0); EOS # 0.5 10^3/uL (0.0-0.50); EOS % 5.1 % (0.0-3.0); HEMOGLOBIN 13.7 g/dl (13.5-17.5); IMMATURE GRANULOCYTE % 0.3 % (0-3.0); LYMPH # 2.7 10^3/uL (1.5-4.5); LYMPH % 30.5 % (24.0-44.0); MEAN CORPUSCULAR HEMOGLOBIN 28.5 pg (27.0-33.0); MEAN CORPUSCULAR HGB CONC 32.6 g/dl (32.0-36.5); MEAN CORPUSCULAR VOLUME 87.5 fl (80.0-96.0); MONO # 0.8 10^3/uL (0.0-0.8); MONO % 9.3 % (0.0-5.0); NEUTROPHILS # 4.9 10^3/uL (1.8-7.7); NEUTROPHILS % 54.4 % (36.0-66.0); PLATELET COUNT, AUTOMATED 103 10^3/uL (150-450); RED CELL DISTRIBUTION WIDTH 13.7 % (11.5-14.5)
[2017-09-23 07:06] LABS: ANION GAP 4 MEQ/L (8-16); BLOOD UREA NITROGEN 30 MG/DL (7-18); CALCIUM LEVEL 8.6 MG/DL (8.8-10.2); CARBON DIOXIDE LEVEL 26 MEQ/L (21-32); CHLORIDE LEVEL 112 MEQ/L (98-107); CREATININE FOR GFR 1.66 MG/DL (0.70-1.30); GLOMERULAR FILTRATION RATE 42.8 (>42); GLUCOSE, FASTING 86 MG/DL (70-100); POTASSIUM SERUM 4.7 MEQ/L (3.5-5.1); SODIUM LEVEL 142 MEQ/L (136-145)
[2017-09-23 07:12] LABS: POS COUNT POS FLAG
[2017-09-23] MEDS: DOCUSATE SODIUM 100 MG CAP PO (10:29)
[2017-09-23] MEDS: DIVALPROEX 500MG *ER* TAB PO (10:30)
[2017-09-23] MEDS: TAMSULOSIN 0.4 MG CAP PO (10:30)
[2017-09-23] MEDS: MULTIVITAMINS/MINERALS THERAP 1 TAB PO (10:30)
[2017-09-23] MEDS: CitaloPRAM (CeleXA) 20 MG TAB PO (10:30)
[2017-09-23] MEDS: ASPIRIN 81 MG ENTERIC TAB PO (10:30)
[2017-09-23] MEDS: MOXIFLOXACIN 400 MG TAB PO (10:30)
[2017-09-23] MEDS: guaiFENesin ER 600 MG TAB PO (10:30)
[2017-09-23] MEDS: FINASTERIDE 5 MG TAB PO (10:30)
[2017-09-23] MEDS: levETIRAcetam 250MG TABLET (KEPPRA) PO (10:30)
[2017-09-23 10:32] LABS: LEVETIRACETAM (KEPPRA) 26.2 ug/mL (10.0-40.0)
[2017-09-24] MEDS ORDERED: MOXIFLOXACIN 400 MG TAB PO (06:00)
[2017-09-24 14:24] LABS: BODY FLUID CULTURE Not Indicated (.); LEGIONELLA ANTIGEN URINE Negative (Negative); ORGANISM ID Not indicated. (.); SPECIMEN SOURCE Urine (.); URINE STREP PNEUMONIAE ANTIGEN Negative (Negative)
== END 2017-09-23 12:14 | DRG 178 ==
LOC: M MSPAV 09-21 12:16 → M ED 15:09 → M ED INP 19:31 → M MS4PR 22:00
DX: J69.0 Pneumonitis due to inhalation of food and vomit (principal); E87.2 Acidosis; N17.9 Acute kidney failure, unspecified; I45.2 Bifascicular block; R56.9 Unspecified convulsions; I95.9 Hypotension, unspecified; K21.9 Gastro-esophageal reflux disease without esophagitis; K59.00 Constipation, unspecified; I25.10 Atherosclerotic heart disease of native coronary artery without angina pectoris; N40.0 Benign prostatic hyperplasia without lower urinary tract symptoms; Z86.73 Personal history of transient ischemic attack (TIA), and cerebral infarction without residual deficits; R42 Dizziness and giddiness; N18.9 Chronic kidney disease, unspecified; J44.9 Chronic obstructive pulmonary disease, unspecified; F32.9 Major depressive disorder, single episode, unspecified; G47.00 Insomnia, unspecified; Z86.718 Personal history of other venous thrombosis and embolism; F03.90 Unspecified dementia, unspecified severity, without behavioral disturbance, psychotic disturbance, mood disturbance, and anxiety; Z79.899 Other long term (current) drug therapy; Z79.82 Long term (current) use of aspirin; Z88.5 Allergy status to narcotic agent; Z85.828 Personal history of other malignant neoplasm of skin; Z95.2 Presence of prosthetic heart valve; Z87.891 Personal history of nicotine dependence

== ENCOUNTER → 2017-09-20 | Outpatient (REF) | payer MEDICARE, MEDICAID | LOC: SKLAB3 11:30 | DX: R50.9 Fever, unspecified (principal); R56.9 Unspecified convulsions; I95.9 Hypotension, unspecified ==

== ENCOUNTER → 2017-09-22 | Outpatient (REF) | payer MEDICARE, MEDICAID | LOC: SKLAB5 07:25 | DX: R56.9 Unspecified convulsions (principal) ==

== ENCOUNTER → 2017-10-03 | Outpatient (REF) | LOC: SKLAB3 07:00 | DX: R56.9 Unspecified convulsions (principal) ==

== ENCOUNTER → 2017-10-11 | Outpatient (REF) | payer MEDICARE, MEDICAID ==
[2017-10-11 13:36] LABS: HEMATOCRIT 45.1 % (42.0-52.0); HEMOGLOBIN 14.8 g/dl (13.5-17.5); MEAN CORPUSCULAR HEMOGLOBIN 28.6 pg (27.0-33.0); MEAN CORPUSCULAR HGB CONC 32.8 g/dl (32.0-36.5); MEAN CORPUSCULAR VOLUME 87.2 fl (80.0-96.0); PLATELET COUNT, AUTOMATED 141 10^3/uL (150-450); RED BLOOD COUNT 5.17 10^6/uL (4.30-6.10); RED CELL DISTRIBUTION WIDTH 14.1 % (11.5-14.5); WHITE BLOOD COUNT 10.2 10^3/uL (4.0-10.0)
== END ==
LOC: SKLAB3 12:16
DX: R09.81 Nasal congestion (principal); Z79.899 Other long term (current) drug therapy
CPT/HCPCS: 71045

== ENCOUNTER → 2017-10-31 | Outpatient (REF) | LOC: SKLAB3 07:00 | DX: Z86.69 Personal history of other diseases of the nervous system and sense organs (principal); Z53.8 Procedure and treatment not carried out for other reasons ==

== ENCOUNTER → 2017-12-07 | Outpatient (REF) | payer MEDICARE, MEDICAID ==
[2017-12-07 14:25] LABS: HEMATOCRIT 46.7 % (42.0-52.0); HEMOGLOBIN 15.3 g/dl (13.5-17.5); MEAN CORPUSCULAR HEMOGLOBIN 28.3 pg (27.0-33.0); MEAN CORPUSCULAR HGB CONC 32.8 g/dl (32.0-36.5); MEAN CORPUSCULAR VOLUME 86.3 fl (80.0-96.0); PLATELET COUNT, AUTOMATED 121 10^3/uL (150-450); RED BLOOD COUNT 5.41 10^6/uL (4.30-6.10); RED CELL DISTRIBUTION WIDTH 14.3 % (11.5-14.5); WHITE BLOOD COUNT 8.1 10^3/uL (4.0-10.0)
[2017-12-07 14:38] LABS: C REACTIVE PROTEIN QUANTITATIV 0.43 MG/DL (0.00-0.30)
[2017-12-07 15:26] LABS: ERYTHROCYTE SEDIMENTATION RATE 1 mm/hr (0-20)
== END ==
LOC: SKLAB3 13:02
DX: H57.10 Ocular pain, unspecified eye (principal)
CPT/HCPCS: 86140

== ENCOUNTER 2017-12-26 12:30 | Inpatient (IN) | payer MEDICARE, MEDICAID ==
[2017-12-26] MEDS: NS 500 ML IV (13:50)
[2017-12-26 14:23] LABS: BASO % 0.2 % (0.0-1.0); EOS % 0.1 % (0.0-3.0); HEMATOCRIT 43.4 % (42.0-52.0); HEMOGLOBIN 14.5 g/dl (13.5-17.5); IMMATURE GRANULOCYTE % 0.8 % (0-3.0); LYMPH # 1.9 10^3/uL (1.5-4.5); LYMPH % 12.2 % (24.0-44.0); MEAN CORPUSCULAR HEMOGLOBIN 28.9 pg (27.0-33.0); MEAN CORPUSCULAR HGB CONC 33.4 g/dl (32.0-36.5); MEAN CORPUSCULAR VOLUME 86.6 fl (80.0-96.0); MONO # 1.7 10^3/uL (0.0-0.8); MONO % 10.9 % (0.0-5.0); NEUTROPHILS # 11.6 10^3/uL (1.8-7.7); NEUTROPHILS % 75.8 % (36.0-66.0); PLATELET COUNT, AUTOMATED 108 10^3/uL (150-450); RED BLOOD COUNT 5.01 10^6/uL (4.30-6.10); RED CELL DISTRIBUTION WIDTH 14.3 % (11.5-14.5); WHITE BLOOD COUNT 15.3 10^3/uL (4.0-10.0)
[2017-12-26 15:44] LABS: INR 1.23; PROTHROMBIN TIME 15.7 SECONDS (12.1-14.4)
[2017-12-26 15:45] LABS: PARTIAL THROMBOPLASTIN TIME 34.8 SECONDS (25.4-37.6)
[2017-12-26 15:56] LABS: ALBUMIN 3.3 GM/DL (3.2-5.2); ALBUMIN/GLOBULIN RATIO 0.85 (1.00-1.93); ALKALINE PHOSPHATASE 109 U/L (45-117); ALT/SGPT 34 U/L (12-78); ANION GAP 7 MEQ/L (8-16); AST/SGOT 17 U/L (7-37); BILIRUBIN,DIRECT 0.3 MG/DL (0.0-0.2); BILIRUBIN,TOTAL 1.5 MG/DL (0.2-1.0); BLOOD UREA NITROGEN 34 MG/DL (7-18); CALCIUM LEVEL 7.9 MG/DL (8.8-10.2); CARBON DIOXIDE LEVEL 22 MEQ/L (21-32); CHLORIDE LEVEL 109 MEQ/L (98-107); CPK CREATINE PHOSPHOKINASE 39 U/L (39-308); CREATININE FOR GFR 1.94 MG/DL (0.70-1.30); FREE T4 1.22 NG/DL (0.76-1.46); GLOMERULAR FILTRATION RATE 35.7 (>42); GLUCOSE, FASTING 102 MG/DL (70-100); POTASSIUM SERUM 4.7 MEQ/L (3.5-5.1); SODIUM LEVEL 138 MEQ/L (136-145); TOTAL PROTEIN 7.2 GM/DL (6.4-8.2); TROPONIN I 0.03 NG/ML (< 0.10)
[2017-12-26 16:02] LABS: CK-MB VALUE MASS < 1.0 NG/ML (<3.6); MB/CK RELATIVE INDEX 2.56 (< OR =4)
[2017-12-26] MEDS: NS 1,000 ML IV (16:07)
[2017-12-26] MEDS ORDERED: IPRATROPIUM 0.5MG/ALBUTEROL 2.5MG INH SOL UD 3ML (DUONEB)(J7620) NEB (19:30)
[2017-12-26] MEDS ORDERED: BISACODYL 10 MG SUPP PR (19:45)
[2017-12-26] MEDS ORDERED: ACETAMINOPHEN TAB 650MG DOSE (2X325MG) PO (19:45)
[2017-12-26] MEDS ORDERED: MOM 30ML SUSPENSION UDC PO (19:45)
[2017-12-26] MEDS ORDERED: NITROGLYCERIN 0.4 MG SUBL TABLET SL (19:45)
[2017-12-26] MEDS: IPRATROPIUM 0.5MG/ALBUTEROL 2.5MG INH SOL UD 3ML (DUONEB)(J7620) NEB (20:00)
[2017-12-26] MEDS: POLYVINYL ALCOHOL OPHTH SOLN 15 ML(LIQUITEARS) OS (21:00)
[2017-12-26] MEDS: POLYVINYL ALCOHOL OPHTH SOLN 15 ML(LIQUITEARS) OD (21:00)
[2017-12-27] MEDS: TAMSULOSIN 0.4 MG CAP PO ×3 (02:28→21:13)
[2017-12-27] MEDS: levETIRAcetam 250MG TABLET (KEPPRA) PO ×3 (02:28→21:13)
[2017-12-27] MEDS: guaiFENesin ER 600 MG TAB PO ×3 (02:28→21:13)
[2017-12-27] MEDS: guaiFENesin DM LIQ 10ML UD PO ×3 (02:29→21:13)
[2017-12-27] MEDS: NS 1,000 ML IV ×2 (02:29→09:53)
[2017-12-27] MEDS: HEPARIN SOD (PORCINE) 5000 UNITS/ML VIAL SC ×4 (02:30→21:14)
[2017-12-27 06:21] LABS: BASO % 0.4 % (0.0-1.0); EOS # 0.2 10^3/uL (0.0-0.50); EOS % 1.5 % (0.0-3.0); HEMATOCRIT 42.6 % (42.0-52.0); HEMOGLOBIN 14.3 g/dl (13.5-17.5); IMMATURE GRANULOCYTE % 0.5 % (0-3.0); LYMPH # 2.7 10^3/uL (1.5-4.5); LYMPH % 24.7 % (24.0-44.0); MEAN CORPUSCULAR HEMOGLOBIN 28.9 pg (27.0-33.0); MEAN CORPUSCULAR HGB CONC 33.6 g/dl (32.0-36.5); MEAN CORPUSCULAR VOLUME 86.2 fl (80.0-96.0); MONO # 1.4 10^3/uL (0.0-0.8); MONO % 12.3 % (0.0-5.0); NEUTROPHILS # 6.7 10^3/uL (1.8-7.7); NEUTROPHILS % 60.6 % (36.0-66.0); PLATELET COUNT, AUTOMATED 107 10^3/uL (150-450); RED BLOOD COUNT 4.94 10^6/uL (4.30-6.10); WHITE BLOOD COUNT 11.1 10^3/uL (4.0-10.0)
[2017-12-27 06:47] LABS: ANION GAP 8 MEQ/L (8-16); BLOOD UREA NITROGEN 36 MG/DL (7-18); CALCIUM LEVEL 8.2 MG/DL (8.8-10.2); CARBON DIOXIDE LEVEL 23 MEQ/L (21-32); CHLORIDE LEVEL 111 MEQ/L (98-107); CREATININE FOR GFR 1.56 MG/DL (0.70-1.30); GLOMERULAR FILTRATION RATE 45.9 (>42); GLUCOSE, FASTING 82 MG/DL (70-100); POTASSIUM SERUM 4.7 MEQ/L (3.5-5.1); SODIUM LEVEL 142 MEQ/L (136-145)
[2017-12-27] MEDS: IPRATROPIUM 0.5MG/ALBUTEROL 2.5MG INH SOL UD 3ML (DUONEB)(J7620) NEB ×4 (08:27→20:28)
[2017-12-27] MEDS: SENNA 8.6 MG TAB (SENOKOT) PO (09:52)
[2017-12-27] MEDS: CitaloPRAM (CeleXA) 10 MG TABLET PO (09:52)
[2017-12-27] MEDS: FINASTERIDE 5 MG TAB PO (09:52)
[2017-12-27] MEDS: ASPIRIN 81 MG ENTERIC TAB PO (09:52)
[2017-12-27] MEDS: POLYVINYL ALCOHOL OPHTH SOLN 15 ML(LIQUITEARS) OD ×2 (09:53→21:13)
[2017-12-27] MEDS: POLYVINYL ALCOHOL OPHTH SOLN 15 ML(LIQUITEARS) OS ×4 (09:53→21:13)
[2017-12-27] MEDS: NS 500 ML IV (17:45)
[2017-12-27 17:58] LABS: CPK CREATINE PHOSPHOKINASE 54 U/L (39-308); TROPONIN I < 0.02 NG/ML (< 0.10)
[2017-12-27 17:59] LABS: CK-MB VALUE MASS 1.9 NG/ML (<3.6); MB/CK RELATIVE INDEX 3.51 (< OR =4)
[2017-12-27] MEDS: PIPERACILLIN/TAZOBACTAM SOD 2.25 GM in D5W MINI-BAG PLUS 50 ML IV (18:07)
[2017-12-27] MEDS: ACETAMINOPHEN TAB 650MG DOSE (2X325MG) PO (18:07)
[2017-12-28] MEDS: PIPERACILLIN/TAZOBACTAM SOD 2.25 GM in D5W MINI-BAG PLUS 50 ML IV ×2 (00:13→05:42)
[2017-12-28] MEDS: HEPARIN SOD (PORCINE) 5000 UNITS/ML VIAL SC (05:41)
[2017-12-28] MEDS: IPRATROPIUM 0.5MG/ALBUTEROL 2.5MG INH SOL UD 3ML (DUONEB)(J7620) NEB (07:31)
[2017-12-28 07:38] LABS: BASO % 0.5 % (0.0-1.0); EOS # 0.2 10^3/uL (0.0-0.50); EOS % 2.1 % (0.0-3.0); HEMATOCRIT 39.1 % (42.0-52.0); HEMOGLOBIN 13.2 g/dl (13.5-17.5); IMMATURE GRANULOCYTE % 0.2 % (0-3.0); LYMPH # 2.2 10^3/uL (1.5-4.5); LYMPH % 27.4 % (24.0-44.0); MEAN CORPUSCULAR HEMOGLOBIN 28.8 pg (27.0-33.0); MEAN CORPUSCULAR HGB CONC 33.8 g/dl (32.0-36.5); MEAN CORPUSCULAR VOLUME 85.2 fl (80.0-96.0); MONO # 1.1 10^3/uL (0.0-0.8); MONO % 13.6 % (0.0-5.0); NEUTROPHILS # 4.5 10^3/uL (1.8-7.7); NEUTROPHILS % 56.2 % (36.0-66.0); PLATELET COUNT, AUTOMATED 114 10^3/uL (150-450); RED BLOOD COUNT 4.59 10^6/uL (4.30-6.10)
[2017-12-28 07:51] LABS: C REACTIVE PROTEIN QUANTITATIV 6.43 MG/DL (0.00-0.30)
[2017-12-28 07:55] LABS: ANION GAP 8 MEQ/L (8-16); BLOOD UREA NITROGEN 32 MG/DL (7-18); CALCIUM LEVEL 7.8 MG/DL (8.8-10.2); CARBON DIOXIDE LEVEL 19 MEQ/L (21-32); CHLORIDE LEVEL 115 MEQ/L (98-107); CK-MB VALUE MASS 1.3 NG/ML (<3.6); CPK CREATINE PHOSPHOKINASE 41 U/L (39-308); GLUCOSE, FASTING 93 MG/DL (70-100); MB/CK RELATIVE INDEX 3.17 (< OR =4); POTASSIUM SERUM 4.3 MEQ/L (3.5-5.1); SODIUM LEVEL 142 MEQ/L (136-145); TROPONIN I < 0.02 NG/ML (< 0.10)
[2017-12-28 08:15] LABS: ERYTHROCYTE SEDIMENTATION RATE 16 mm/hr (0-20)
[2017-12-28] MEDS: SENNA 8.6 MG TAB (SENOKOT) PO (09:04)
[2017-12-28] MEDS: MOXIFLOXACIN 400 MG TAB PO (09:04)
[2017-12-28] MEDS: levETIRAcetam 250MG TABLET (KEPPRA) PO (09:04)
[2017-12-28] MEDS: ASPIRIN 81 MG ENTERIC TAB PO (09:04)
[2017-12-28] MEDS: TAMSULOSIN 0.4 MG CAP PO (09:04)
[2017-12-28] MEDS: CitaloPRAM (CeleXA) 10 MG TABLET PO (09:04)
[2017-12-28] MEDS: FINASTERIDE 5 MG TAB PO (09:04)
[2017-12-28] MEDS: guaiFENesin ER 600 MG TAB PO (09:04)
[2017-12-28] MEDS: guaiFENesin DM LIQ 10ML UD PO (09:05)
[2017-12-28] MEDS: POLYVINYL ALCOHOL OPHTH SOLN 15 ML(LIQUITEARS) OD (09:05)
[2017-12-28] MEDS: POLYVINYL ALCOHOL OPHTH SOLN 15 ML(LIQUITEARS) OS (09:05)
[2017-12-29] MEDS ORDERED: MOXIFLOXACIN 400 MG TAB PO (06:00)
[2017-12-30 00:13] LABS: LEVETIRACETAM (KEPPRA) 34.5 ug/mL (10.0-40.0)
== END 2017-12-28 11:22 | DRG 178 ==
LOC: M MSPAV 12-27 02:00 → M ED 12:30 → M ED INP 19:28
DX: J69.0 Pneumonitis due to inhalation of food and vomit (principal); N17.9 Acute kidney failure, unspecified; I69.354 Hemiplegia and hemiparesis following cerebral infarction affecting left non-dominant side; I95.1 Orthostatic hypotension; N18.3 Chronic kidney disease, stage 3 (moderate); J44.9 Chronic obstructive pulmonary disease, unspecified; I25.10 Atherosclerotic heart disease of native coronary artery without angina pectoris; K59.00 Constipation, unspecified; N40.0 Benign prostatic hyperplasia without lower urinary tract symptoms; K21.9 Gastro-esophageal reflux disease without esophagitis; F32.9 Major depressive disorder, single episode, unspecified; F13.90 Sedative, hypnotic, or anxiolytic use, unspecified, uncomplicated; D69.6 Thrombocytopenia, unspecified; I27.20 Pulmonary hypertension, unspecified; I34.0 Nonrheumatic mitral (valve) insufficiency; Z79.82 Long term (current) use of aspirin; Z79.899 Other long term (current) drug therapy; R51 Headache; G47.33 Obstructive sleep apnea (adult) (pediatric); Z86.718 Personal history of other venous thrombosis and embolism; Z88.5 Allergy status to narcotic agent

== ENCOUNTER → 2018-02-10 | Outpatient (REF) | payer MEDICARE, MEDICAID | LOC: SKLAB3 13:27 | DX: J18.9 Pneumonia, unspecified organism (principal) | CPT/HCPCS: 71045 ==

== ENCOUNTER → 2018-03-29 | Outpatient (REF) | payer MEDICARE, MEDICAID ==
[2018-03-29 11:54] LABS: INFLUENZA A AMPLIFICATION NEGATIVE (NEGATIVE); INFLUENZA B AMPLIFICATION NEGATIVE (NEGATIVE)
== END ==
LOC: SKLAB3 11:02
DX: R07.0 Pain in throat (principal); R50.9 Fever, unspecified
CPT/HCPCS: 87430

== ENCOUNTER 2018-03-30 12:03 | Inpatient (IN) | payer MEDICARE, MEDICAID ==
[2018-03-30] MEDS: NS 1,000 ML IV (12:50)
[2018-03-30 13:00] LABS: BASO % 0.4 % (0.0-1.0); EOS # 0.1 10^3/uL (0.0-0.50); EOS % 0.9 % (0.0-3.0); HEMATOCRIT 48.4 % (42.0-52.0); HEMOGLOBIN 15.9 g/dl (13.5-17.5); IMMATURE GRANULOCYTE % 0.5 % (0-3.0); LYMPH # 2.4 10^3/uL (1.5-4.5); LYMPH % 23.1 % (24.0-44.0); MEAN CORPUSCULAR HEMOGLOBIN 28.8 pg (27.0-33.0); MEAN CORPUSCULAR HGB CONC 32.9 g/dl (32.0-36.5); MEAN CORPUSCULAR VOLUME 87.7 fl (80.0-96.0); MONO # 0.6 10^3/uL (0.0-0.8); MONO % 6.2 % (0.0-5.0); NEUTROPHILS # 7.1 10^3/uL (1.8-7.7); NEUTROPHILS % 68.9 % (36.0-66.0); PLATELET COUNT, AUTOMATED 116 10^3/uL (150-450); RED BLOOD COUNT 5.52 10^6/uL (4.30-6.10); RED CELL DISTRIBUTION WIDTH 13.5 % (11.5-14.5); WHITE BLOOD COUNT 10.3 10^3/uL (4.0-10.0)
[2018-03-30 13:08] LABS: INR 1.18; PROTHROMBIN TIME 15.1 SECONDS (12.1-14.4)
[2018-03-30] MEDS: CEFEPIME HCL 1 GM in D5W MINI-BAG PLUS 50 ML IV (13:25)
[2018-03-30 13:26] LABS: ALBUMIN 3.3 GM/DL (3.2-5.2); ALBUMIN/GLOBULIN RATIO 0.97 (1.00-1.93); ALKALINE PHOSPHATASE 80 U/L (45-117); ALT/SGPT 18 U/L (12-78); ANION GAP 11 MEQ/L (8-16); AST/SGOT 9 U/L (7-37); BILIRUBIN,DIRECT 0.4 MG/DL (0.0-0.2); BILIRUBIN,TOTAL 1.1 MG/DL (0.2-1.0); BLOOD UREA NITROGEN 38 MG/DL (7-18); CALCIUM LEVEL 8.5 MG/DL (8.8-10.2); CARBON DIOXIDE LEVEL 22 MEQ/L (21-32); CHLORIDE LEVEL 106 MEQ/L (98-107); CK-MB VALUE MASS < 1.0 NG/ML (<3.6); CPK CREATINE PHOSPHOKINASE 30 U/L (39-308); CREATININE FOR GFR 1.87 MG/DL (0.70-1.30); GLOMERULAR FILTRATION RATE 37.3 (>42); GLUCOSE, FASTING 134 MG/DL (70-100); MB/CK RELATIVE INDEX 3.33 (< OR =4); POTASSIUM SERUM 4.6 MEQ/L (3.5-5.1); SODIUM LEVEL 139 MEQ/L (136-145); TOTAL PROTEIN 6.7 GM/DL (6.4-8.2); TROPONIN I < 0.02 NG/ML (< 0.10)
[2018-03-30] MEDS: LR 1,000 ML IV (18:19)
[2018-03-30] MEDS ORDERED: LIDOCAINE 2% INJ 100 MG/5 ML SDV (FOR ANES.) As Ordered (18:41)
[2018-03-30] MEDS ORDERED: PROPOFOL 200 MG/20 ML VIAL As Ordered (18:41)
[2018-03-30] MEDS ORDERED: MIDAZOLAM INJ 2 MG/2 ML VIAL (J2250) As Ordered (18:42)
[2018-03-30] MEDS ORDERED: fentaNYL 100 MCG/2 ML INJECTION (J3010) As Ordered (18:42)
[2018-03-30] MEDS: AMIODARONE 150MG/3ML INJ (J0282) As Ordered (19:01)
[2018-03-30] MEDS: ISOVUE-300 61% 50ML VIAL (Q9967) As Ordered (19:01)
[2018-03-30] MEDS: ceFAZolin 1GM INJ (J0690 PER 500MG) As Ordered (19:27)
[2018-03-30] MEDS ORDERED: ALBUTEROL SULFATE 2.5 MG/0.5 ML INH NEB SOLN INH ×2 (20:00→20:30)
[2018-03-30] MEDS: LIDOCAINE 1% SDV INJ 30 ML VIAL As Ordered (20:08)
[2018-03-30] MEDS: BACITRACIN PWD 50,000 UNITS VIAL As Ordered (20:08)
[2018-03-30] MEDS ORDERED: BISACODYL 10 MG SUPP PR (20:30)
[2018-03-30] MEDS ORDERED: CitaloPRAM (CeleXA) 10 MG TABLET PO (20:30)
[2018-03-30] MEDS ORDERED: NITROGLYCERIN 0.4 MG SUBL TABLET SL (20:30)
[2018-03-30] MEDS ORDERED: ONDANSETRON 4MG/2ML VIAL (J2405) IV (20:45)
[2018-03-30] MEDS ORDERED: LR 1,000 ML IV (20:45)
[2018-03-30] MEDS ORDERED: fentaNYL 100 MCG/2 ML INJECTION (J3010) IV (20:45)
[2018-03-30] MEDS ORDERED: PERCOCET 5MG/325MG TAB PO (20:45)
[2018-03-30] MEDS: TAMSULOSIN 0.4 MG CAP PO (21:35)
[2018-03-30] MEDS: levETIRAcetam 250MG TABLET (KEPPRA) PO (21:35)
[2018-03-30] MEDS: ADVAIR HFA 230/21MCG INHALER INH (22:38)
[2018-03-30] MEDS: traZODone 25MG PER 1/2 TABLET PO (22:39)
[2018-03-30] MEDS: guaiFENesin DM LIQ 10ML UD PO (22:39)
[2018-03-31] MEDS: IPRATROPIUM 0.5MG/ALBUTEROL 2.5MG INH SOL UD 3ML (DUONEB)(J7620) INH ×4 (08:00→20:00)
[2018-03-31] MEDS: TIOTROPIUM INHALER/CAPSULE (SPIRIVA) INH (08:49)
[2018-03-31] MEDS: ADVAIR HFA 230/21MCG INHALER INH ×2 (08:50→21:00)
[2018-03-31] MEDS: guaiFENesin DM LIQ 10ML UD PO ×3 (09:26→21:40)
[2018-03-31] MEDS: levETIRAcetam 250MG TABLET (KEPPRA) PO ×2 (09:26→21:39)
[2018-03-31] MEDS: CitaloPRAM (CeleXA) 10 MG TABLET PO (09:26)
[2018-03-31] MEDS: FINASTERIDE 5 MG TAB PO (09:26)
[2018-03-31] MEDS: SENNA 8.6 MG TAB (SENOKOT) PO (09:27)
[2018-03-31] MEDS: ASPIRIN 81 MG ENTERIC TAB PO (09:27)
[2018-03-31] MEDS: TAMSULOSIN 0.4 MG CAP PO ×2 (09:27→21:40)
[2018-03-31] MEDS: ACETAMINOPHEN TAB 650MG DOSE (2X325MG) PO ×2 (09:27→15:05)
[2018-03-31] MEDS: LORATADINE 10 MG TAB PO (09:27)
[2018-03-31] MEDS: CEFEPIME HCL 1 GM in D5W MINI-BAG PLUS 50 ML IV (14:00)
[2018-03-31] MEDS: traZODone 25MG PER 1/2 TABLET PO (21:40)
[2018-03-31] MEDS: DEXTRAN/HYPROMELLOSE OPHTH SOLN 15 ML(GENTEAL TEARS) OU (21:40)
[2018-04-01 06:15] LABS: BASO % 0.5 % (0.0-1.0); EOS # 0.2 10^3/uL (0.0-0.50); EOS % 2.8 % (0.0-3.0); HEMATOCRIT 43.2 % (42.0-52.0); HEMOGLOBIN 14.3 g/dl (13.5-17.5); IMMATURE GRANULOCYTE % 0.4 % (0-3.0); LYMPH # 2.3 10^3/uL (1.5-4.5); LYMPH % 28.5 % (24.0-44.0); MEAN CORPUSCULAR HEMOGLOBIN 29.2 pg (27.0-33.0); MEAN CORPUSCULAR HGB CONC 33.1 g/dl (32.0-36.5); MEAN CORPUSCULAR VOLUME 88.2 fl (80.0-96.0); MONO # 0.9 10^3/uL (0.0-0.8); MONO % 11.4 % (0.0-5.0); NEUTROPHILS # 4.6 10^3/uL (1.8-7.7); NEUTROPHILS % 56.4 % (36.0-66.0); PLATELET COUNT, AUTOMATED 103 10^3/uL (150-450); RED CELL DISTRIBUTION WIDTH 13.5 % (11.5-14.5); WHITE BLOOD COUNT 8.1 10^3/uL (4.0-10.0)
[2018-04-01 06:44] LABS: ALBUMIN 2.7 GM/DL (3.2-5.2); ALBUMIN/GLOBULIN RATIO 0.75 (1.00-1.93); ALKALINE PHOSPHATASE 70 U/L (45-117); ALT/SGPT 13 U/L (12-78); ANION GAP 7 MEQ/L (8-16); AST/SGOT 14 U/L (7-37); BILIRUBIN,TOTAL 0.5 MG/DL (0.2-1.0); BLOOD UREA NITROGEN 33 MG/DL (7-18); CALCIUM LEVEL 8.3 MG/DL (8.8-10.2); CARBON DIOXIDE LEVEL 23 MEQ/L (21-32); CHLORIDE LEVEL 112 MEQ/L (98-107); CREATININE FOR GFR 1.38 MG/DL (0.70-1.30); GLOMERULAR FILTRATION RATE 52.9 (>42); GLUCOSE, FASTING 91 MG/DL (70-100); POTASSIUM SERUM 4.5 MEQ/L (3.5-5.1); SODIUM LEVEL 142 MEQ/L (136-145); TOTAL PROTEIN 6.3 GM/DL (6.4-8.2)
[2018-04-01] MEDS: TIOTROPIUM INHALER/CAPSULE (SPIRIVA) INH (07:18)
[2018-04-01] MEDS: IPRATROPIUM 0.5MG/ALBUTEROL 2.5MG INH SOL UD 3ML (DUONEB)(J7620) INH ×4 (07:18→20:00)
[2018-04-01] MEDS: ADVAIR HFA 230/21MCG INHALER INH ×2 (07:19→21:39)
[2018-04-01] MEDS: DEXTRAN/HYPROMELLOSE OPHTH SOLN 15 ML(GENTEAL TEARS) OU ×3 (09:50→20:10)
[2018-04-01] MEDS: FINASTERIDE 5 MG TAB PO (09:50)
[2018-04-01] MEDS: TAMSULOSIN 0.4 MG CAP PO ×2 (09:50→20:10)
[2018-04-01] MEDS: guaiFENesin DM LIQ 10ML UD PO ×3 (09:50→20:10)
[2018-04-01] MEDS: CitaloPRAM (CeleXA) 10 MG TABLET PO (09:50)
[2018-04-01] MEDS: LORATADINE 10 MG TAB PO (09:50)
[2018-04-01] MEDS: levETIRAcetam 250MG TABLET (KEPPRA) PO ×2 (09:50→20:10)
[2018-04-01] MEDS: SENNA 8.6 MG TAB (SENOKOT) PO (09:51)
[2018-04-01] MEDS: ASPIRIN 81 MG ENTERIC TAB PO (09:51)
[2018-04-01] MEDS: CEFEPIME HCL 1 GM in D5W MINI-BAG PLUS 50 ML IV (13:05)
[2018-04-01] MEDS: traZODone 25MG PER 1/2 TABLET PO (20:10)
[2018-04-02 05:53] LABS: BASO # 0.1 10^3/uL (0.0-0.2); BASO % 0.6 % (0.0-1.0); EOS # 0.3 10^3/uL (0.0-0.50); EOS % 3.1 % (0.0-3.0); HEMATOCRIT 42.5 % (42.0-52.0); HEMOGLOBIN 13.7 g/dl (13.5-17.5); IMMATURE GRANULOCYTE % 0.7 % (0-3.0); LYMPH # 2.7 10^3/uL (1.5-4.5); LYMPH % 32.8 % (24.0-44.0); MEAN CORPUSCULAR HEMOGLOBIN 28.6 pg (27.0-33.0); MEAN CORPUSCULAR HGB CONC 32.2 g/dl (32.0-36.5); MEAN CORPUSCULAR VOLUME 88.7 fl (80.0-96.0); MONO # 0.9 10^3/uL (0.0-0.8); MONO % 11.1 % (0.0-5.0); NEUTROPHILS # 4.3 10^3/uL (1.8-7.7); NEUTROPHILS % 51.7 % (36.0-66.0); PLATELET COUNT, AUTOMATED 117 10^3/uL (150-450); RED BLOOD COUNT 4.79 10^6/uL (4.30-6.10); RED CELL DISTRIBUTION WIDTH 13.4 % (11.5-14.5); WHITE BLOOD COUNT 8.3 10^3/uL (4.0-10.0)
[2018-04-02 06:25] LABS: ANION GAP 7 MEQ/L (8-16); BLOOD UREA NITROGEN 31 MG/DL (7-18); CALCIUM LEVEL 8.1 MG/DL (8.8-10.2); CARBON DIOXIDE LEVEL 23 MEQ/L (21-32); CHLORIDE LEVEL 111 MEQ/L (98-107); CREATININE FOR GFR 1.37 MG/DL (0.70-1.30); GLOMERULAR FILTRATION RATE 53.4 (>42); GLUCOSE, FASTING 80 MG/DL (70-100); POTASSIUM SERUM 4.5 MEQ/L (3.5-5.1); SODIUM LEVEL 141 MEQ/L (136-145)
[2018-04-02] MEDS: TIOTROPIUM INHALER/CAPSULE (SPIRIVA) INH (08:37)
[2018-04-02] MEDS: IPRATROPIUM 0.5MG/ALBUTEROL 2.5MG INH SOL UD 3ML (DUONEB)(J7620) INH ×4 (08:37→20:00)
[2018-04-02] MEDS: ADVAIR HFA 230/21MCG INHALER INH ×2 (09:00→20:36)
[2018-04-02] MEDS: guaiFENesin DM LIQ 10ML UD PO ×3 (09:02→19:59)
[2018-04-02] MEDS: MOM 30ML SUSPENSION UDC PO (09:02)
[2018-04-02] MEDS: LORATADINE 10 MG TAB PO (09:03)
[2018-04-02] MEDS: TAMSULOSIN 0.4 MG CAP PO ×2 (09:03→20:00)
[2018-04-02] MEDS: DEXTRAN/HYPROMELLOSE OPHTH SOLN 15 ML(GENTEAL TEARS) OU ×3 (09:03→20:00)
[2018-04-02] MEDS: FINASTERIDE 5 MG TAB PO (09:03)
[2018-04-02] MEDS: SENNA 8.6 MG TAB (SENOKOT) PO (09:03)
[2018-04-02] MEDS: ASPIRIN 81 MG ENTERIC TAB PO (09:03)
[2018-04-02] MEDS: CitaloPRAM (CeleXA) 10 MG TABLET PO (09:03)
[2018-04-02] MEDS: levETIRAcetam 250MG TABLET (KEPPRA) PO ×2 (09:03→20:00)
[2018-04-02] MEDS: CEFEPIME HCL 1 GM in D5W MINI-BAG PLUS 50 ML IV (12:55)
[2018-04-02] MEDS: traZODone 25MG PER 1/2 TABLET PO (20:00)
[2018-04-03] MEDS: ACETAMINOPHEN TAB 650MG DOSE (2X325MG) PO (04:47)
[2018-04-03] MEDS: TIOTROPIUM INHALER/CAPSULE (SPIRIVA) INH (07:32)
[2018-04-03] MEDS: IPRATROPIUM 0.5MG/ALBUTEROL 2.5MG INH SOL UD 3ML (DUONEB)(J7620) INH ×2 (07:32→11:02)
[2018-04-03] MEDS: ADVAIR HFA 230/21MCG INHALER INH (07:32)
[2018-04-03] MEDS: DEXTRAN/HYPROMELLOSE OPHTH SOLN 15 ML(GENTEAL TEARS) OU (08:26)
[2018-04-03] MEDS: CitaloPRAM (CeleXA) 10 MG TABLET PO (08:27)
[2018-04-03] MEDS: levETIRAcetam 250MG TABLET (KEPPRA) PO (08:27)
[2018-04-03] MEDS: FINASTERIDE 5 MG TAB PO (08:27)
[2018-04-03] MEDS: TAMSULOSIN 0.4 MG CAP PO (08:28)
[2018-04-03] MEDS: guaiFENesin DM LIQ 10ML UD PO (08:28)
[2018-04-03] MEDS: ASPIRIN 81 MG ENTERIC TAB PO (08:28)
[2018-04-03] MEDS: SENNA 8.6 MG TAB (SENOKOT) PO (08:28)
[2018-04-03] MEDS: LORATADINE 10 MG TAB PO (08:28)
== END 2018-04-03 11:10 | DRG 242 ==
LOC: M PCU 03-31 19:39 → M ED 12:03 → M ED INP 17:42 → M ICU 21:01
PROC: 0JH606Z Insertion of Pacemaker, Dual Chamber into Chest Subcutaneous Tissue and Fascia, Open Approach (ICD-10-PCS; principal; 2018-03-30 18:30)
PROC: 02H73JZ Insertion of Pacemaker Lead into Left Atrium, Percutaneous Approach (ICD-10-PCS; 2018-03-30 18:30)
PROC: 02HL3JZ Insertion of Pacemaker Lead into Left Ventricle, Percutaneous Approach (ICD-10-PCS; 2018-03-30 18:30)
DX: I44.1 Atrioventricular block, second degree (principal); J18.9 Pneumonia, unspecified organism; I45.2 Bifascicular block; I34.0 Nonrheumatic mitral (valve) insufficiency; Z79.899 Other long term (current) drug therapy; Z79.82 Long term (current) use of aspirin; Z87.891 Personal history of nicotine dependence

== ENCOUNTER → 2018-03-30 | Outpatient (REF) | payer MEDICARE, MEDICAID | LOC: SKLAB3 07:01 | DX: R00.1 Bradycardia, unspecified (principal) ==

== ENCOUNTER → 2018-04-12 | Outpatient (REF) | payer MEDICARE, MEDICAID | LOC: SKLAB3 11:02 | DX: R13.10 Dysphagia, unspecified (principal); R91.8 Other nonspecific abnormal finding of lung field; Z95.0 Presence of cardiac pacemaker | CPT/HCPCS: 71046 ==

== ENCOUNTER 2018-06-05 17:29 | Inpatient (IN) | payer MEDICARE, MEDICAID ==
[~2018-06-05] VITALS: Ht 182.9 cm; Wt 84.6 kg
[~2018-06-05 17:29] MED LIST changes: +ACET1TAB55 PO; +ACET500T15 PO; -ACETAMINOPHEN 325 MG TAB PO PRN; -ACETYLCHOLINE OPHTH SOLN 1% 2ML (MIOCHOL-E) As Ordered ONE; +ADV500INH INH; +ALB2.5NEB INH; +ASPI81TAEC PO; +AVEL1TAB3 PO; +BACITAB PO; -BALANCED SALT IRRIGATION SOLUTION 500ML BAG (FOR OR EYE MACHINE) As Ordered ONE; +CEFD1CAP8 PO; -CEFUROXIME 1MG/0.1ML INTRACAMERAL INJ As Ordered ONE; +CITA-230 PO; +CLAR10CA3 PO; -CYCLOPENTOLATE 2% OPHTH SOLN 2ML BTL OS ONE; +DEPA500T2 PO; +DOCU100C16 PO; +DULC10SU2 PR; +ENEMENE16 PR; +ENSU-12 PO; +FINA5TAB2 PO; +FLOM0.4C39 PO; -FLOM5CAP PO; +GUAI1TAB PO; -HEALON DUET (HEALON 10MG/ML 0.55ML & HEALON ENDOCOAT 30MG/ML 0.85ML) As Ordered ONE; +IPRA0.00 INH; +KEPP1TAB PO; +LEVE750T5 PO; -LIDOCAINE 1% SDV 5 ML VIAL As Ordered ONE; -LIDOCAINE 3.5 % 1ML OPHTH TOPICAL GEL OU ONE; -LOSA50TA20 PO; +LOSA50TA73 PO; +MILK12002 PO; +MOM30SS PO; +NITR4TASL SL; -OFLOXACIN 0.3 % (OCUFLOX) OPTH SOL 5ML OS ONE; -PHENYLEPHRINE 2.5% OPHTH SOL 2ML OS ONE; -POVIDONE-IODINE 5% OPHTH PREP SOL 30ML As Ordered ONE; -PROC10TA PO; +PROC10TA4 PO; -PROPARACAINE 0.5% OPHTH SOL 15ML OS PRN; +QUET1TAB7 PO; +SENN18TA PO; +SPIR1CAP INH; +SYST0.4D2 OS; +SYST0.4D2 OU; +SYST1SOL OS; +SYST1SOL OU; +TRAZ-160 PO; -TROPICAMIDE 1% OPHTH SOLN 2ML OS ONE; +TYLE325T5 PO; +VITMTA PO; +ZOSY3INJ2 IV; +[UNRECOGNIZED DRUG - CODE] PO; +[UNRECOGNIZED DRUG - OTHER] INH
[2018-06-05 18:02] LABS: BASO % 0.6 % (0.0-1.0); EOS % 0.4 % (0.0-3.0); HEMATOCRIT 45.5 % (42.0-52.0); HEMOGLOBIN 14.9 g/dl (13.5-17.5); LYMPH # 1.7 10^3/uL (1.5-4.5); LYMPH % 25.3 % (24.0-44.0); MEAN CORPUSCULAR HEMOGLOBIN 28.9 pg (27.0-33.0); MEAN CORPUSCULAR HGB CONC 32.7 g/dl (32.0-36.5); MEAN CORPUSCULAR VOLUME 88.3 fl (80.0-96.0); MONO # 1.1 10^3/uL (0.0-0.8); MONO % 16.3 % (0.0-5.0); NEUTROPHILS # 3.9 10^3/uL (1.8-7.7); PLATELET COUNT, AUTOMATED 101 10^3/uL (150-450); RED BLOOD COUNT 5.15 10^6/uL (4.30-6.10); WHITE BLOOD COUNT 6.8 10^3/uL (4.0-10.0)
[2018-06-05] MEDS ORDERED: SYSTOIN OU (18:02)
[2018-06-05] MEDS ORDERED: [UNRECOGNIZED DRUG - OTHER] PO (18:02)
[2018-06-05 18:19] LABS: BLOOD UREA NITROGEN 37 MG/DL (7-18); CALCIUM LEVEL 8.1 MG/DL (8.8-10.2); CARBON DIOXIDE LEVEL 22 MEQ/L (21-32); CHLORIDE LEVEL 108 MEQ/L (98-107); CPK CREATINE PHOSPHOKINASE 56 U/L (39-308); CREATININE FOR GFR 2.01 MG/DL (0.70-1.30); GLOMERULAR FILTRATION RATE 34.3 (>42); GLUCOSE, FASTING 81 MG/DL (70-100); MB/CK RELATIVE INDEX 1.79 (< OR =4); POTASSIUM SERUM 4.7 MEQ/L (3.5-5.1); SODIUM LEVEL 139 MEQ/L (136-145); TROPONIN I < 0.02 NG/ML (< 0.10)
--- NOTE | 2018-06-05 19:17 | ECGEPIP ---
Stationary ECG Study [facility] - ED Test Date: 2018-06-05 Pat Name: VENU CALDERÓN Department: Room: - Gender: M Senior Planning Analyst: manuel : 1940 Requested By: JESSICA Cook Order Number: [id number] Reading MD: Javier Barker Measurements Intervals Omar Rate: 74 P: [place]: 0 QRS: 166 QRSD: 201 T: 0 QT: 433 QTc: 483 Interpretive Statements ELECTRONIC VENTRICULAR PACEMAKER VENTRICULAR PREMATURE CONTRACTIONS RIGHT AXIS DEVIATION RIGHT BUNDLE BRANCH BLOCK ST DEPRESSION, CONSIDER SUBENDOCARDIAL INJURY SIMILAR TO PRIOR ON SAME DATE Electronically Signed On 06-05-2018 19:17:02 EST by Javier Barker
--- NOTE | 2018-06-05 19:19 | REP ---
Chest one-view HISTORY: Chest pain Comparison: 04/12/2018 Parenchymal density is present in the right upper lobe unchanged compared to the previous study. Patchy density is present in the right lower lobe consistent with atelectasis or infiltrate. The pulmonary vasculature is normal in appearance. A cardiac pacemaker is present. Impression: 1. Right upper lobe parenchymal density unchanged compared to the previous study. 2. Right lower lobe atelectasis or infiltrate. Electronically Signed by Charlie Marroquin MD 06/05/2018 07:10 P
[2018-06-05] MEDS ORDERED: IPRATROPIUM 0.5MG/ALBUTEROL 2.5MG INH SOL UD 3ML (DUONEB)(J7620) NEB ONE (19:45)
[2018-06-05] MEDS ORDERED: BENZONATATE 100 MG CAP PO ONE (20:00)
[2018-06-05] MEDS ORDERED: LevoFLOXacin IV 500 MG in APPROPRIATE DILUENT 1 EA IV ONE (20:00)
[2018-06-05] MEDS ORDERED: NS 1,000 ML IV SCH (20:59)
[2018-06-05] MEDS ORDERED: ONDANSETRON 4MG/2ML VIAL (J2405) IV PRN (21:00)
[2018-06-05] MEDS: levETIRAcetam 250MG TABLET (KEPPRA) PO SCH (21:00)
[2018-06-05] MEDS ORDERED: IPRATROPIUM 0.5MG/ALBUTEROL 2.5MG INH SOL UD 3ML (DUONEB)(J7620) NEB PRN (21:00)
[2018-06-05] MEDS ORDERED: BISACODYL 10 MG SUPP PR PRN (21:00)
[2018-06-05] MEDS: TAMSULOSIN 0.4 MG CAP PO SCH (21:00)
[2018-06-05] MEDS ORDERED: traZODone 50 MG TAB PO SCH (21:00)
[2018-06-05] MEDS ORDERED: ACETAMINOPHEN TAB 650MG DOSE (2X325MG) PO PRN (21:00)
[2018-06-05] MEDS ORDERED: BISACODYL 5 MG TAB PO PRN (21:00)
--- NOTE | 2018-06-05 22:02 | HPEPDOC ---
[facility] Medical History & Physical Date of Admission Jun 05, 2018 Attending Physician: MARIANO PORTER MD History and Physical CHIEF COMPLAINT: [Hypoxemia] HISTORY OF PRESENT ILLNESS: [77-year-old gentleman residing at the sn[facility] within a few past medical history dementia, recurrent aspiration pneumonia, COPD history quit smoking in 1975, CAD, BPH, seizure disorder, depression, insomnia, GERD, CK D stage III, history of DVT, history of left subdural hematoma, history of CVA, status post mitral valve replacement who sent from the snf due to hypoxemia. Patient felt feverish and weak for 1 week. Patient states the fevers been intermittent on and off. Patient has been producing phlegm in addition cough. Chest discomfort with coughing. Denies of any lower Shorty swelling. Patient quit smoking in 1975. Patient was evaluated in the emergency room and noted that he required oxygen therapy and checks x-ray showed right- sided pneumonia. Patient also was found to have urinary tract infection. Patient was started on Levaquin and admitted for further evaluation and treatment. Due to high requirement of oxygen therapy of 4 L patient is being admitted for further evaluation. Patient also requests that he be DNR/DNI with full medical management. Review system: Point review systems negative other than those described in HPI] PAST MEDICAL HISTORY: 1. Dementia. 2. Recurrent aspiration pneumonia. 3. COPD. 4. Coronary artery disease. 5. Benign prostatic hypertrophy (BPH). 6. Seizure disorder. 7. Depression. 8. Insomnia. 9. Gastroesophageal reflux disease (GERD). 10. History of chronic kidney disease stage III. 11. History of DVT. 12. Hearing loss. 13. History of left subdural hematoma. 14. History of CVA. 15. Status post mitral valve replacement. 16. Status post cataract surgery. SOCIAL HISTORY: [facility] resident. Ex smoker, quit in 1975. Denies alcohol use. FAMILY HISTORY: Reviewed and noncontributory. ALLERGIES: Please see below. HOME MEDICATIONS: Please see below. PHYSICAL EXAMINATION: Vitals: See below HEENT: Normocephalic, atraumatic. Mucous is moist, PERRLA. HEART: S1, S2. Regular rate and rhythm. LUNGS: Equal air entry, right-sided crackle at the base, no obvious wheezing ABDOMEN: Soft, nontender. Bowel sounds normal in all four quadrants. EXTREMITIES: Chronic venous stasis skin changes. No calf swelling or tenderness. Neurology: Cranial nerves grossly intact Psychiatry: Normal mood and affect for current situation, family set the bedside at this time request no CT scan of the chest be done LABORATORY DATA: See below. IMAGING: [CXR: 1. Right upper lobe parenchymal density unchanged compared to the previous study. 2. Right lower lobe atelectasis or infiltrate.] MICROBIOLOGY: Please see below. Assessment and plan: ASSESSMENT AND PLAN: 77-year-old gentleman residing at the snf within a few past medical history dementia, recurrent aspiration pneumonia, COPD history quit smoking in 1975, CAD, BPH, seizure disorder, depression, insomnia, GERD, CK D stage III, history of DVT, history of left subdural hematoma, history of CVA, status post mitral valve replacement who sent from the snf due to hypoxemia. P atient found to have right lower lobe pneumonia, hypoxemia requiring 4 L of oxygen, and UTI. Right lower lobe pneumonia and hypoxemia. UTI -Blood cultures pending -Respiratory treatment, empiric antiemetic of Levaquin, Resume Advair, Spiriva -Oxygen therapy -Gentle IV fluid Acute kidney injury on chronic kidney disease stage III. UTI -IV fluid, empiric Levaquin renally dosed by pharmacy -Continue to monitor History of chronic obstructive pulmonary disease (COPD). -No evidence of acute exacerbation. No wheeze or shortness of breath. Utilize steroids as needed. Benign prostatic hypertrophy (BPH). Continue Flomax Seizure disorder. Continue Keppra. Depression. Continue citalopram. Coronary arterial disease. Continue aspirin. History of CVA. Continue aspirin. History of dementia with depression, on citalopram and trazodone. Currently alert and oriented times two and fairly functional. Resident of [facility]. Deep vein thrombosis (DVT) prophylaxis. Heparin subcutaneous . Vital Signs Vital Signs Date Time Temp Pulse Resp B/P (MAP) Pulse Ox O2 Delivery O2 Flow Rate FiO2 06/05/18 20:53 80 96 06/05/18 20:45 130/61 (84) 06/05/18 18:04 Nasal Cannula 5.0 06/05/18 17:38 99.7 22 Laboratory Data Labs 24H Laboratory Tests 2 06/05/18 17:45: Immature Granulocyte % (Auto) 0.4, White Blood Count 6.8, Red Blood Count 5.15, Hemoglobin 14.9, Hematocrit 45.5, Mean Corpuscular Volume 88.3, Mean Corpuscular Hemoglobin 28.9, Mean Corpuscular Hemoglobin Concent 32.7, Red Cell Distribution Width 14.3, Platelet Count 101L, Neutrophils (%) (Auto) 57.0, Lymphocytes (%) (Auto) 25.3, Monocytes (%) (Auto) 16.3H, Eosinophils (%) (Auto) 0.4, Basophils (%) (Auto) 0.6, Neutrophils # (Auto) 3.9, Lymphocytes # (Auto) 1.7, Monocytes # (Auto) 1.1H, Eosinophils # (Auto) 0.0, Basophils # (Auto) 0.0, Nucleated Red Blood Cells % (auto) 0.0, Anion Gap 9, Glomerular Filtration Rate 34.3L, Lactic Acid Level 1.1, Blood Urea Nitrogen 37H, Creatinine 2.01H, Sodium Level 139, Potassium Level 4.7, Chloride Level 108H, Carbon Dioxide Level 22, Calcium Level 8.1L, Total Creatine Kinase 56, Creatine Kinase MB 1.0, Creatine Kinase MB Relative Index 1.79, Troponin I < 0.02 06/05/18 17:55: Urine Color KAREL, Urine Appearance CLOUDYH, Urine pH 7.0, Urine Specific [place] 1.021, Urine Protein 2+H, Urine Glucose (UA) NEGATIVE, Urine Ketones NEGATIVE, Urine Blood NEGATIVE, Urine Nitrite POSITIVEH, Urine Bilirubin 1+H, Urine Urobilinogen 0.2, Urine Leukocyte Esterase 3+H, Urine WBC (Auto) TNTCH, Urine RBC (Auto) 15H, Urine Hyaline Casts (Auto) 0, Urine Bacteria (Auto) 2+H, Urine Squamous Epithelial Cells 0, Urine Triple Phosphate Cryst (Auto) SMALL, Urine Mucus (Auto) SMALL, Urine Sperm (Auto) CBC/BMP Laboratory Tests 06/05/18 17:45 Red Blood Count 5.15, Mean Corpuscular Volume 88.3, Mean Corpuscular Hemoglobin 28.9, Mean Corpuscular Hemoglobin Concent 32.7, Red Cell Distribution Width 14.3, Neutrophils (%) (Auto) 57.0, Lymphocytes (%) (Auto) 25.3, Monocytes (%) (Auto) 16.3 H, Eosinophils (%) (Auto) 0.4, Basophils (%) (Auto) 0.6, Neutrophils # (Auto) 3.9, Lymphocytes # (Auto) 1.7, Monocytes # (Auto) 1.1 H, Eosinophils # (Auto) 0.0, Basophils # (Auto) 0.0, Calcium Level 8.1 L, Total Creatine Kinase 56 Microbiology Microbiology 06/05/18 Blood Culture, Received Pending 06/05/18 Urine Culture, Received Pending Home Medications Scheduled (Tussin Dm 100-10 mg/5Ml) 1 Syp Syp, 20 ML PO TID (Systane Nighttime) 1 Oin Oin, 1 APLCT OU QHS Albuterol/Ipratropium (Ipratropium [place]/Albut 0.5-2.5 (3) mg/3Ml) 1 Lexis Lexis, 1 LEXIS INH QID Aluminum/Magnesium (Sm Antacid/[place] 200-200-20 mg/5Ml) 1 Mame Mame, 30 ML PO TID Aspirin (Aspirin EC) 81 Mg Tabec, 81 MG PO DAILY Citalopram Hydrobromide (Citalopram) 20 Mg Tab, 30 MG PO DAILY Finasteride (Finasteride) 5 Mg Tab, 5 MG PO DAILY Levetiracetam (Levetiracetam) 750 Mg Tab, 750 MG PO BID Polyethylene Glycol (Systane 0.4-0.3 %) 15 Ml Lexis, 1 DROP OU TID Salmeterol/Fluticasone (Advair Diskus 500-50 Mcg/Dose) 28 Puff/Inhaler Aerp, 1 PUFF INH BID Senna (Senna-Lax) 8.6 Mg Tab, 2 TAB PO DAILY Tamsulosin Hydrochloride (Flomax) 0.4 Mg Cap, 0.4 MG PO BID Tiotropium [place] Monohydrate (Spiriva Handihaler) 18 Mcg Cap, 1 CAP INH DAILY Trazodone HCl (Trazodone HCl) 50 Mg Tab, 50 MG PO QHS [Acapella] , 1 UNIT INH BID Scheduled PRN Acetaminophen (Acetaminophen) 325 Mg Tab, 650 MG PO Q4H PRN for PAIN / FEVER Albuterol Sulfate (Albuterol Sulfate) 2.5 Mg/0.5 Ml Neb, 1 LEXIS INH Q4H PRN for SHORTNESS OF BREATH Bisacodyl (Dulcolax) 10 Mg Sup, 10 MG PA DAILY PRN for CONSTIPATION Milk Of Magnesia (Milk of Magnesia Concentr) 30 Ml Conc, 30 ML PO DAILY PRN for CONSTIPATION Nitroglycerin (Nitrostat) 0.4 Mg Subl, 0.4 MG SL Q5MP PRN for CHEST PAIN Sodium Phosphate/Biphosphate (Enema 7-19 gm/118Ml) 1 Luther Luther, 1 LUTHER PA DAILY PRN for CONSTIPATION Allergies Coded Allergies: Morphine (Verified Adverse Reaction, Intermediate, VERY CONFUSED, 04/20/17) ALAN SHIELDS MD Jun 05, 2018 22:02
[2018-06-05 22:54] LABS: CK-MB VALUE MASS < 1.0 NG/ML (<3.6); CPK CREATINE PHOSPHOKINASE 74 U/L (39-308); MB/CK RELATIVE INDEX 1.35 (< OR =4); TROPONIN I < 0.02 NG/ML (< 0.10)
[2018-06-06] MEDS: IPRATROPIUM 0.5MG/ALBUTEROL 2.5MG INH SOL UD 3ML (DUONEB)(J7620) NEB SCH ×2 (02:00→08:00)
[2018-06-06 06:00] LABS: HEMATOCRIT 43.8 % (42.0-52.0); HEMOGLOBIN 14.4 g/dl (13.5-17.5); MEAN CORPUSCULAR HEMOGLOBIN 28.6 pg (27.0-33.0); MEAN CORPUSCULAR HGB CONC 32.9 g/dl (32.0-36.5); MEAN CORPUSCULAR VOLUME 86.9 fl (80.0-96.0); RED BLOOD COUNT 5.04 10^6/uL (4.30-6.10); WHITE BLOOD COUNT 7.9 10^3/uL (4.0-10.0)
[2018-06-06] MEDS ORDERED: HEPARIN SOD (PORCINE) 5000 UNITS/ML VIAL SC SCH (06:00)
[2018-06-06 06:25] LABS: PLATELET COUNT, AUTOMATED 96 10^3/uL (150-450)
[2018-06-06 06:36] LABS: ALBUMIN 2.9 GM/DL (3.2-5.2); BILIRUBIN,TOTAL 0.4 MG/DL (0.2-1.0); CALCIUM LEVEL 7.7 MG/DL (8.8-10.2); CREATININE FOR GFR 1.72 MG/DL (0.70-1.30); MB/CK RELATIVE INDEX 2.14 (< OR =4); POTASSIUM SERUM 4.9 MEQ/L (3.5-5.1); TOTAL PROTEIN 6.6 GM/DL (6.4-8.2); TROPONIN I 0.02 NG/ML (< 0.10)
[2018-06-06 08:00] VITALS: BP 112/55
[2018-06-06] MEDS: TAMSULOSIN 0.4 MG CAP PO SCH (08:34)
[2018-06-06] MEDS: levETIRAcetam 250MG TABLET (KEPPRA) PO SCH (08:34)
[2018-06-06] MEDS ORDERED: SENNA 8.6 MG TAB (SENOKOT) PO SCH (09:00)
[2018-06-06] MEDS ORDERED: MAALOX 30 ML SUSP *UDC PO SCH (09:00)
[2018-06-06] MEDS ORDERED: TIOTROPIUM INHALER/CAPSULE (SPIRIVA) INH SCH (09:00)
[2018-06-06] MEDS ORDERED: ADVAIR HFA 230/21MCG INHALER INH SCH (09:00)
[2018-06-06] MEDS ORDERED: ASPIRIN 81 MG ENTERIC TAB PO SCH (09:00)
[2018-06-06] MEDS ORDERED: CitaloPRAM (CeleXA) 10 MG TABLET PO SCH (09:00)
[2018-06-06] MEDS ORDERED: POLYVINYL ALCOHOL OPHTH SOLN 15 ML(LIQUITEARS) OU SCH (09:00)
[2018-06-06] MEDS ORDERED: AZIT500T2 PO (11:07)
[2018-06-06] MEDS ORDERED: CEFD300CAP PO (11:07)
[2018-06-06] MEDS ORDERED: LevoFLOXacin IV 750 MG in APPROPRIATE DILUENT 1 EA IV SCH (18:00)
--- NOTE | 2018-06-12 11:37 | DS.PDOC ---
Discharge Summary General Date of Admission Jun 05, 2018 at 20:59 Date of Discharge 06/06/18 Primary Care Physician: HEBERT AUGUST DO Attending Physician: MARIANO PORTER MD Discharge Summary PROCEDURES PERFORMED DURING STAY: [None]. DISCHARGE DIAGNOSES: Acute respiratory failure with hypoxia Right Lower lobe pneumonia Right upper lobe mass/ opacity increasing in size does not want any investigation for this UTI COPD Dementia ABEBE on CKD 3 BPH H/O DVT H/O CVA Seizure disorder CAD anxiety and depression Mobitz type 2 A-V block s/p Pacemaker in 2018 Mitral valve repair for severe mitral regurgitation. COMPLICATIONS/CHIEF COMPLAINT: Hypoxemia,Pneumonia. HISTORY OF PRESENT ILLNESS: See history and physical HOSPITAL COURSE: 77-year-old gentleman residing at the halfway within a few past medical history dementia, recurrent aspiration pneumonia, COPD history quit smoking in 1975, CAD, BPH, seizure disorder, depression, insomnia, GERD, CKD stage III, history of DVT, history of left subdural hematoma, history of CVA, status post mitral valve repair, GERD, who sent from the halfway due to hypoxemia. Patient felt feverish and weak for 1 week. Patient states the fevers been intermittent on and off. Patient has been producing phlegm in addition cough. Chest discomfort with coughing. Denies of any lower Shorty swelling. Patient quit smoking in 1975. Patient was evaluated in the emergency room and noted that he required oxygen therapy and checks x-ray showed right- sided pneumonia. Patient also was found to have urinary tract infection. Patient was started on Levaquin and admitted for further evaluation and treatment. Due to high requirement of oxygen therapy of 4 L patient is being admitted for further evaluation. Patient also requests that he be DNR/DNI with full medical management. Right lower lobe pneumonia and hypoxemia. probably again aspiration pneumonia Blood cultures negative till date Respiratory treatment, empiric treatment with cefdinir and azithromycin Resume Advair, Spiriva Oxygen therapy Right upper lobe mass/ opacity knows for about [address] Lennon in the past and biopsy was offered as it has a high chance of being malignant As per daughter patient did not want any Biopsy done. He does not want to know if he has a cancer or not. Explained that it is growing bigger and most likely is cancer. UTI UC proteus sensitive to cefdinir Acute kidney injury on chronic kidney disease stage III. probably prerenal with poor intake. creatinine back to baseline received IV fluid, Continue to monitor History of chronic obstructive pulmonary disease (COPD). No evidence of acute exacerbation. No wheeze or shortness of breath. Utilize steroids as needed. Benign prostatic hypertrophy (BPH). Continue Flomax Seizure disorder. Continue Keppra. Depression. Continue citalopram. Coronary arterial disease. Continue aspirin. History of CVA. Continue aspirin. History of dementia with depression, on citalopram and trazodone. Currently alert and oriented times two and fairly functional. Resident of [facility] nursing facility. DISCHARGE MEDICATIONS: Please see below. ALLERGIES: Please see below. PHYSICAL EXAMINATION ON DISCHARGE: VITAL SIGNS: Please see below. GENERAL: Awake, alert oriented x 3, lying comfortably in bed in no acute distress. HEENT: Normocephalic, atraumatic. Mucous is moist, PERRLA. HEART: S1, S2. Regular rate and rhythm. LUNGS: Equal air entry, right-sided crackle at the base, no obvious wheezing ABDOMEN: Soft, nontender. Bowel sounds normal in all four quadrants. EXTREMITIES: Chronic venous stasis skin changes. No calf swelling or tenderness. Neurology: Cranial nerves grossly intact Psychiatry: Normal mood and affect for current situation, family set the bedside at this time request no CT scan of the chest be done LABORATORY DATA: Please see below. PROGNOSIS: guarded ACTIVITY: [As tolerated]. DIET: As tolerated DISPOSITION: [facility]. DISCHARGE INSTRUCTIONS: [facility] DISCHARGE CONDITION: [Stable]. TIME SPENT ON DISCHARGE: Greater than 30 minutes. Vital Signs/I&Os Vital Signs Date Time Temp Pulse Resp B/P (MAP) Pulse Ox O2 Delivery O2 Flow Rate FiO2 06/06/18 08:00 1.0 06/06/18 08:00 98.1 66 18 112/55 (74) 96 Nasal Cannula Microbiology Microbiology 06/05/18 Blood Culture - Preliminary, Resulted No growth after 24 hours . All specim... 06/05/18 Urine Culture - Final, Complete Proteus Mirabilis Discharge Medications Scheduled (Tussin Dm 100-10 mg/5Ml) 1 Syp Syp, 20 ML PO TID, (Reported) (Systane Nighttime) 1 Oin Oin, 1 APLCT OU QHS, (Reported) Albuterol/Ipratropium (Ipratropium [place]/Albut 0.5-2.5 (3) mg/3Ml) 1 Lexis Lexis, 1 LEXIS INH QID, (Reported) Aluminum/Magnesium (Sm Antacid/[place] 200-200-20 mg/5Ml) 1 Mame Mame, 30 ML PO TID, (Reported) Aspirin (Aspirin EC) 81 Mg Tabec, 81 MG PO DAILY, (Reported) Azithromycin (Azithromycin) 500 Mg Tab, 1 TAB PO DAILY Cefdinir (Cefdinir) 300 Mg Cap, 300 MG PO BID Citalopram Hydrobromide (Citalopram) 20 Mg Tab, 30 MG PO DAILY, (Reported) Finasteride (Finasteride) 5 Mg Tab, 5 MG PO DAILY, (Reported) Levetiracetam (Levetiracetam) 750 Mg Tab, 750 MG PO BID, (Reported) Polyethylene Glycol (Systane 0.4-0.3 %) 15 Ml Lexis, 1 DROP OU TID, (Reported) Salmeterol/Fluticasone (Advair Diskus 500-50 Mcg/Dose) 28 Puff/Inhaler Aerp, 1 PUFF INH BID, (Reported) Senna (Senna-Lax) 8.6 Mg Tab, 2 TAB PO DAILY, (Reported) Tamsulosin Hydrochloride (Flomax) 0.4 Mg Cap, 0.4 MG PO BID, (Reported) Tiotropium [place] Monohydrate (Spiriva Handihaler) 18 Mcg Cap, 1 CAP INH DAILY, (Reported) Trazodone HCl (Trazodone HCl) 50 Mg Tab, 50 MG PO QHS, (Reported) [Acapella] , 1 UNIT INH BID, (Reported) Scheduled PRN Acetaminophen (Acetaminophen) 325 Mg Tab, 650 MG PO Q4H PRN for PAIN / FEVER, (Reported) Albuterol Sulfate (Albuterol Sulfate) 2.5 Mg/0.5 Ml Neb, 1 LEXIS INH Q4H PRN for SHORTNESS OF BREATH, (Reported) Bisacodyl (Dulcolax) 10 Mg Sup, 10 MG IN DAILY PRN for CONSTIPATION, (Reported) Milk Of Magnesia (Milk of Magnesia Concentr) 30 Ml Conc, 30 ML PO DAILY PRN for CONSTIPATION, (Reported) Nitroglycerin (Nitrostat) 0.4 Mg Subl, 0.4 MG SL Q5MP PRN for CHEST PAIN, (Reported) Sodium Phosphate/Biphosphate (Enema 7-19 gm/118Ml) 1 Luther Luther, 1 LUTHER IN DAILY PRN for CONSTIPATION, (Reported) Allergies Coded Allergies: Morphine (Verified Adverse Reaction, Intermediate, VERY CONFUSED, 04/20/17) MARIANO PORTER MD Jun 07, 2018 15:00
== END 2018-06-06 11:38 | DRG 194 ==
LOC: M ED 17:29 → M ED INP 20:59
PROVIDERS: ADMIT Internal Medicine; ATTEND Internal Medicine Nephrology
DX: J18.9 Pneumonia, unspecified organism (principal); N17.9 Acute kidney failure, unspecified; N39.0 Urinary tract infection, site not specified; R91.8 Other nonspecific abnormal finding of lung field; F03.90 Unspecified dementia, unspecified severity, without behavioral disturbance, psychotic disturbance, mood disturbance, and anxiety; J44.9 Chronic obstructive pulmonary disease, unspecified; Z87.891 Personal history of nicotine dependence; I25.10 Atherosclerotic heart disease of native coronary artery without angina pectoris; N40.0 Benign prostatic hyperplasia without lower urinary tract symptoms; G40.909 Epilepsy, unspecified, not intractable, without status epilepticus; G47.00 Insomnia, unspecified; N18.3 Chronic kidney disease, stage 3 (moderate); F32.9 Major depressive disorder, single episode, unspecified; Z86.718 Personal history of other venous thrombosis and embolism; K21.9 Gastro-esophageal reflux disease without esophagitis; Z86.73 Personal history of transient ischemic attack (TIA), and cerebral infarction without residual deficits; Z95.2 Presence of prosthetic heart valve; Z66 Do not resuscitate; Z79.899 Other long term (current) drug therapy; Z79.82 Long term (current) use of aspirin; Z88.5 Allergy status to narcotic agent; F41.9 Anxiety disorder, unspecified; I34.0 Nonrheumatic mitral (valve) insufficiency; Z95.0 Presence of cardiac pacemaker

== ENCOUNTER → 2018-08-14 | Outpatient (REF) | payer MEDICARE, MEDICAID ==
[~2018-08-14] MED LIST changes: +AZIT500T2 PO; +CEFD300CAP PO; -ENEMENE16 PR; +ENEMENE4 PR; -LOSA50TA73 PO; +LOSA50TA88 PO; +MILK120011 PO; -MILK12002 PO; +SYSTOIN OU; +TUSS100S30 PO; -[UNRECOGNIZED DRUG - CODE] PO; +[UNRECOGNIZED DRUG - OTHER] PO
[2018-08-14 11:25] LABS: HEMATOCRIT 42.6 % (42.0-52.0); HEMOGLOBIN 13.9 g/dl (13.5-17.5); MEAN CORPUSCULAR HEMOGLOBIN 29.2 pg (27.0-33.0); MEAN CORPUSCULAR HGB CONC 32.6 g/dl (32.0-36.5); MEAN CORPUSCULAR VOLUME 89.5 fl (80.0-96.0); PLATELET COUNT, AUTOMATED 101 10^3/uL (150-450); RED BLOOD COUNT 4.76 10^6/uL (4.30-6.10); WHITE BLOOD COUNT 8.2 10^3/uL (4.0-10.0)
[2018-08-14 11:54] LABS: ALBUMIN 3.2 GM/DL (3.2-5.2); BILIRUBIN,TOTAL 0.7 MG/DL (0.2-1.0); CALCIUM LEVEL 8.2 MG/DL (8.8-10.2); CREATININE FOR GFR 1.39 MG/DL (0.70-1.30); GLOMERULAR FILTRATION RATE 52.5 (>42); POTASSIUM SERUM 4.9 MEQ/L (3.5-5.1); TOTAL PROTEIN 6.2 GM/DL (6.4-8.2)
== END ==
LOC: SKLAB3 10:33
PROVIDERS: ATTEND Internal Medicine
DX: R41.82 Altered mental status, unspecified (principal)

== ENCOUNTER → 2018-09-18 | Outpatient (REF) | payer MEDICARE, MEDICAID | LOC: SKLAB3 15:10 | PROVIDERS: ATTEND Internal Medicine | DX: G40.89 Other seizures (principal) ==

== ENCOUNTER → 2018-11-06 | Outpatient (REF) | payer MEDICARE, MEDICAID ==
[~2018-11-06] MED LIST changes: -CITA-230 PO; -CITA20TA4 PO; +CITA20TA6 PO; +CITA20TA7 PO
[2018-11-06 10:25] LABS: HEMATOCRIT 43.9 % (42.0-52.0); HEMOGLOBIN 14.5 g/dl (13.5-17.5); MEAN CORPUSCULAR HEMOGLOBIN 29.8 pg (27.0-33.0); MEAN CORPUSCULAR VOLUME 90.3 fl (80.0-96.0); PLATELET COUNT, AUTOMATED 132 10^3/uL (150-450); RED BLOOD COUNT 4.86 10^6/uL (4.30-6.10); WHITE BLOOD COUNT 10.7 10^3/uL (4.0-10.0)
== END ==
LOC: SKLAB3 07:00
PROVIDERS: ATTEND Internal Medicine
DX: D64.9 Anemia, unspecified (principal)

== ENCOUNTER → 2018-12-04 | Outpatient (REF) | payer MEDICARE, MEDICAID ==
[~2018-12-04] MED LIST changes: -TRAZ-160 PO; +TRAZ-252 PO
[2018-12-04 08:43] LABS: ALBUMIN 2.8 GM/DL (3.2-5.2); ALT/SGPT 14 U/L (12-78); BILIRUBIN,TOTAL 0.5 MG/DL (0.2-1.0); BLOOD UREA NITROGEN 32 MG/DL (7-18); CALCIUM LEVEL 8.3 MG/DL (8.8-10.2); CARBON DIOXIDE LEVEL 25 MEQ/L (21-32); CHLORIDE LEVEL 110 MEQ/L (98-107); CREATININE FOR GFR 1.23 MG/DL (0.70-1.30); GLOMERULAR FILTRATION RATE > 60.0 (>35); GLUCOSE, FASTING 77 MG/DL (70-100); POTASSIUM SERUM 4.5 MEQ/L (3.5-5.1); SODIUM LEVEL 141 MEQ/L (136-145); TOTAL PROTEIN 6.2 GM/DL (6.4-8.2)
== END ==
LOC: SKLAB3 07:00
PROVIDERS: ATTEND Internal Medicine
DX: Z79.899 Other long term (current) drug therapy (principal); J44.9 Chronic obstructive pulmonary disease, unspecified; R56.9 Unspecified convulsions

== ENCOUNTER → 2019-02-12 | Outpatient (REF) | payer MEDICARE, MEDICAID ==
[~2019-02-12] MED LIST changes: -AZIT500T2 PO; +AZIT500T5 PO; -OMEP20CA3 PO; +OMEP20CA4 PO
== END ==
LOC: SKLAB3 07:00
PROVIDERS: ATTEND Internal Medicine
DX: D64.9 Anemia, unspecified (principal)

== ENCOUNTER → 2019-05-07 | Outpatient (REF) | payer MEDICARE, MEDICAID ==
[2019-05-07 09:39] LABS: HEMATOCRIT 40.3 % (42.0-52.0); HEMOGLOBIN 12.2 g/dl (13.5-17.5); MEAN CORPUSCULAR HGB CONC 30.3 g/dl (32.0-36.5); MEAN CORPUSCULAR VOLUME 92.6 fl (80.0-96.0); PLATELET COUNT, AUTOMATED 185 10^3/uL (150-450); RED BLOOD COUNT 4.35 10^6/uL (4.30-6.10); WHITE BLOOD COUNT 14.6 10^3/uL (4.0-10.0)
== END ==
LOC: SKLAB3 07-07 07:00
PROVIDERS: ATTEND Internal Medicine
DX: D64.9 Anemia, unspecified (principal)

== ENCOUNTER → 2019-08-10 | Outpatient (REF) | payer MEDICARE, MEDICAID ==
[~2019-08-10] MED LIST changes: +OMEP1CAP73 PO; -OMEP20CA4 PO
== END ==
LOC: SKLAB3 15:20
PROVIDERS: ATTEND Internal Medicine
DX: R56.9 Unspecified convulsions (principal); Z51.81 Encounter for therapeutic drug level monitoring